=== PATIENT | female | born 1940 | race Caucasian/White ===

== ENCOUNTER 2016-11-04 16:11 | Emergency (ER) | payer MEDICARE ==
[~2016-11-04] VITALS: Ht 157.5 cm; Wt 59.9 kg
[~2016-11-04 16:11] MED LIST: DOCU100C37 PO; ENAL20TA PO; FLUT16SP22 NSEACH; HYDR12.56 PO; OXYC-465 PO; SIMV20TA3 PO
[2016-11-04] MEDS ORDERED: CARV12.53 (16:35)
[2016-11-04] MEDS ORDERED: cloNIDine 0.1 MG (CATAPRES) TAB PO ONE (16:45)
--- NOTE | 2016-11-04 17:00 | ED General ---
General Chief Complaint: Cardiac/General Problems Stated Complaint: ELEV BP Nursing Triage Note: SENT OVER FROM [facility]. STATES SHE HAD HIGH BP THIS AM AND SHE TOOK 12.5 OF COREG. IT REMAINED HIGH SO SHE TOOK ANOTHER COREG 12.5 THEN WENT TO URGENT CARE. Nursing Sepsis Screen: No Definite Risk Source of Information: Patient Exam Limitations: No Limitations History of Present Illness Time Seen by Provider: 16:55 Initial Comments The patient is a 76-year-old white female who presents to the emergency room with a complaint of high blood pressure. She reports that she takes her blood pressure daily and this morning found to be elevated. She takes carvedilol 6.25 mg daily and because of the elevated pressure she took a second pill to take her to 12.5 mg. She has since taken a second added dose of 6.25. She then went to urgent care and was found to have a blood pressure of 180/85 and was advised to present here by the mid-level provider. She sees a snack stewardess based in [place]. She was last seen in August at which time enalapril was stopped because of hyperkalemia and palpation complaints. Addition she apparently told the snack stewardess that her hydrochlorothiazide made her feel crazy and that was stopped. In its place carvedilol 6.25 mg daily was added. In the past she has also taken hydralazine and amlodipine. The amlodipine apparently caused her feet to swell. The hydralazine also did not agree with her. Timing/Duration: 12 Hours Allergies and Home Medications Allergies Coded Allergies: amlodipine (Verified Adverse Reaction, Unknown, "MADE ME WILD", 11/04/16) hydrochlorothiazide (Verified Adverse Reaction, Unknown, "MADE ME WILD", ) Home Medications Carvedilol 12.5 Mg Tablet, (Reported) Constitutional: see HPI EENTM: no symptoms reported Respiratory: no symptoms reported Cardiovascular: no symptoms reported Gastrointestinal: no symptoms reported Genitourinary: other (history of kidney dysfunction) Musculoskeletal: no symptoms reported Skin: no symptoms reported Psychiatric/Neurological: No Symptoms Reported Hematologic/Lymphatic: No Symptoms Reported Immunological/Allergic: no symptoms reported Past Qoidaxo-Femgrz-Dflsos Hx Patient Social History Alcohol Use: Denies Use Recreational Drug Use: No Recent Foreign Travel: No Contact w/Someone Who Travel: No Recent Infectious Disease Expo: No Physical Abuse: No Sexual Abuse: No Immunizations Up To Date Date of Pneumonia Vaccine: Nov 28, 2011 Date of Influenza Vaccine: Dec 12, 2014 Surgeries History of Surgeries: Yes (LEFT RCR, 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) Surgeries: Bladder Surgery, Bowel Surgery, Gallbladder, Hysterectomy Respiratory History of Respiratory Disorde: No Cardiovascular History of Cardiac Disorders: Yes Cardiac Disorders: High Cholesterol, Hypertension Neurological History of Neurological Disord: No Genitourinary History of Genitourinary Disor: No Gastrointestinal History of Gastrointestinal Di: No Musculoskeletal History of Musculoskeletal Dis: Yes Musculoskeletal Disorders: Arthritis Endocrine History of Endocrine Disorders: No HEENT History of HEENT Disorders: No Cancer History of Cancer: No Cancer: Skin, Melanoma Psychosocial History of Psychiatric Problem: No Suicide Risk Score: 0 Integumentary History of Skin or Integumenta: No Blood Transfusions History of Blood Disorders: No Family Medical History Family Medial History: Alzheimer's disease 19 MOTHER G8 SISTER Cardiovascular disease 19 MOTHER Cataracts 19 MOTHER FH: cancer 19 FATHER Physical Exam Vital Signs Vital Sign - Last 12Hours 11/04/16 16:20 Temp 98.0 Pulse 62 Resp 18 B/P (MAP) 206/93 Capillary Refill : Less Than 3 Seconds General Appearance: Anxious Eyes: Bilateral Eye Normal Inspection HEENT: Normal ENT Inspection Neck: Normal Inspection Respiratory: Chest Non Tender, Lungs Clear, Normal Breath Sounds, No Accessory Muscle Use, No Respiratory Distress Cardiovascular: Regular Rate, Rhythm, No Edema, No Gallop, No JVD, No Murmur, Normal Peripheral Pulses Gastrointestinal: Normal Bowel Sounds, No Organomegaly, No Pulsatile Mass, Non Tender, Soft Back: Normal Inspection, No CVA Tenderness, No Vertebral Tenderness Extremity: Normal Capillary Refill, Normal Inspection, Normal Range of Motion, Non Tender, No Calf Tenderness, No Pedal Edema Skin: Normal Color, Warm/Dry Lymphatic: No Adenopathy Progress/Results/Core Measures Results/Orders Lab Results Laboratory Tests Test 11/04/16 16:55 Range/Units White Blood Count 5.2 4.3-11.0 10^3/uL Red Blood Count 3.40 L 4.35-5.85 10^6/uL Hemoglobin 10.1 L 11.5-16.0 G/DL Hematocrit 30 L 35-52 % Mean Corpuscular Volume 89 80-99 FL Mean Corpuscular Hemoglobin 30 25-34 PG Mean Corpuscular Hemoglobin Concent 34 32-36 G/DL Red Cell Distribution Width 12.4 10.0-14.5 % Platelet Count 307 130-400 10^3/uL Mean Platelet Volume 8.6 7.4-10.4 FL Neutrophils (%) (Auto) 62 42-75 % Lymphocytes (%) (Auto) 29 12-44 % Monocytes (%) (Auto) 8 0-12 % Eosinophils (%) (Auto) 1 0-10 % Basophils (%) (Auto) 0 0-10 % Neutrophils # (Auto) 3.3 1.8-7.8 X 10^3 Lymphocytes # (Auto) 1.5 1.0-4.0 X 10^3 Monocytes # (Auto) 0.4 0.0-1.0 X 10^3 Eosinophils # (Auto) 0.0 0.0-0.3 10^3/uL Basophils # (Auto) 0.0 0.0-0.1 10^3/uL Sodium Level 131 L 135-145 MMOL/L Potassium Level 4.3 3.6-5.0 MMOL/L Chloride Level 97 L 98-107 MMOL/L Carbon Dioxide Level 24 21-32 MMOL/L Anion Gap 10 5-14 MMOL/L Blood Urea Nitrogen 27 H 7-18 MG/DL Creatinine 1.66 H 0.60-1.30 MG/DL Estimat Glomerular Filtration Rate 30 BUN/Creatinine Ratio 16 Glucose Level 100 70-105 MG/DL Calcium Level 9.4 8.5-10.1 MG/DL My Orders Orders - SHANNON PAINTING MD Metoprolol Tartrate (Ir) Tab (Lopressor (11/04/16 17:30) Medications Given in ED Current Medications Medications Dose Ordered Sig/Omar Route Start Time Stop Time Status Last Admin Dose Admin Clonidine HCl 0.1 mg ONCE ONCE PO 11/04/16 16:45 11/04/16 16:46 DC 11/04/16 16:51 0.1 MG Metoprolol Tartrate 25 mg ONCE ONCE PO 11/04/16 17:30 11/04/16 17:31 11/04/16 17:28 25 MG Vital Signs/I&O Vital Sign - Last 12Hours 11/04/16 16:20 Temp 98.0 Pulse 62 Resp 18 B/P (MAP) 206/93 Blood Pressure Mean: 130 Departure Communication (Admissions) Progress Notes Laboratory showed a modest elevation in creatinine at 1.66. Impression Impression: Primary Impression: hypertension Disposition: 01 HOME, SELF-CARE Condition: Stable/Unchanged Departure-Patient Inst. Decision time for Depature: 17:33 Referrals: CHASE FLOYD MD (PCP) Primary Care Physician HEENA DOMINGUEZ (Family) Primary Care Physician Add. Discharge Instructions: All discharge instructions reviewed with patient and/or family. Voiced understanding. Stop the coreg. In the a.m. begin the metoprolol XR Do not take your blood pressure at home more than once daily. See your provider in about 2 weeks and follow up Scripts Metoprolol Succinate (Metoprolol Succinate) 25 Mg Tab.er.24h 25 MG PO DAILY, #30 TAB Prov: SHANNON PAINTING MD 11/04/16 SHANNON PAINTING MD Nov 04, 2016 17:00
[2016-11-04 17:04] LABS: BASOPHILS % (AUTO) 0 % (0-10); EOSINOPHILS % (AUTO) 1 % (0-10); LYMPHOCYTES # (AUTO) 1.5 X 10^3 (1.0-4.0); LYMPHOCYTES % (AUTO) 29 % (12-44); MEAN CORPUSCULAR HEMOGLOBIN 30 PG (25-34); MEAN CORPUSCULAR HGB CONC 34 G/DL (32-36); MEAN CORPUSCULAR VOLUME 89 FL (80-99); MEAN PLATELET VOLUME 8.6 FL (7.4-10.4); MONOCYTES # (AUTO) 0.4 X 10^3 (0.0-1.0); MONOCYTES % (AUTO) 8 % (0-12); NEUTROPHILS # (AUTO) 3.3 X 10^3 (1.8-7.8); NEUTROPHILS % (AUTO) 62 % (42-75); PLATELET COUNT 307 10^3/uL (130-400); RED CELL DISTRIBUTION WIDTH 12.4 % (10.0-14.5); WHITE BLOOD COUNT 5.2 10^3/uL (4.3-11.0)
[2016-11-04 17:19] LABS: ANION GAP 10 MMOL/L (5-14); BLOOD UREA NITROGEN 27 MG/DL (7-18); BUN/CREATININE RATIO 16; CALCIUM 9.4 MG/DL (8.5-10.1); CARBON DIOXIDE 24 MMOL/L (21-32); CHLORIDE 97 MMOL/L (98-107); CREATININE SERUM 1.66 MG/DL (0.60-1.30); GFR ESTIMATED 30; GLUCOSE 100 MG/DL (70-105); POTASSIUM 4.3 MMOL/L (3.6-5.0); SODIUM 131 MMOL/L (135-145)
[2016-11-04 17:26] LABS: TROPONIN I < 0.30 NG/ML (<0.30)
[2016-11-04] MEDS ORDERED: meTOprolol TARTRATE 25 MG (LOPRESSOR) TABLET PO ONE (17:30)
[2016-11-04] MEDS ORDERED: METO-270 PO (17:36)
[2016-11-04 18:03] VITALS: BP 178/75
== END 2016-11-04 18:03 | disposition home or self-care (01) ==
LOC: EDUNIT# 16:11 → ER 16:14
DX: I10 Essential (primary) hypertension (principal); E78.00 Pure hypercholesterolemia, unspecified; M19.90 Unspecified osteoarthritis, unspecified site; Z82.49 Family history of ischemic heart disease and other diseases of the circulatory system; Z85.820 Personal history of malignant melanoma of skin; Z90.710 Acquired absence of both cervix and uterus
CPT/HCPCS: 36415; 80048; 84484; 85025

== ENCOUNTER 2018-12-26 11:09 | Outpatient (CLI) | payer MEDICARE ==
[~2018-12-26] VITALS: Ht 157 cm; Wt 62.7 kg
[~2018-12-26 11:09] MED LIST changes: +CARV12.53; +METO-387 PO
[2018-12-26] MEDS ORDERED: FERR-84 PO (12:58)
[2018-12-26] MEDS ORDERED: MELA10CA2 PO (12:58)
[2018-12-26] MEDS ORDERED: SIMV20TA3 PO (12:58)
[2018-12-26] MEDS ORDERED: OMG1KC PO (12:58)
[2018-12-26] MEDS ORDERED: ALLO100T PO (12:58)
[2018-12-26] MEDS ORDERED: FLUT9.9S NS (12:58)
[2018-12-26] MEDS ORDERED: EST30C VG (12:58)
[2018-12-26] MEDS ORDERED: TURM538C PO (12:58)
[2018-12-26] MEDS ORDERED: CYAN100071 PO (12:58)
[2018-12-26] MEDS ORDERED: METO-351 PO (12:58)
[2018-12-26] MEDS ORDERED: SENN-141 PO (12:58)
== END 2018-12-26 12:59 | disposition home or self-care (01) ==
LOC: PREOP 11:09
PROVIDERS: ATTEND Specialist
DX: Z01.818 Encounter for other preprocedural examination (principal)

== ENCOUNTER 2018-12-28 05:52 | Day surgery (SDC) | payer MEDICARE ==
[~2018-12-28] VITALS: Ht 157 cm; Wt 62.7 kg
[~2018-12-28 05:52] MED LIST changes: +ALLO100T PO; +CYAN100071 PO; +EST30C VG; +FERR-84 PO; +FLUT9.9S NS; +MELA10CA2 PO; +METO-351 PO; -METO-387 PO; +MTP25TSR PO; +OMG1KC PO; +SENN-141 PO; +SIMV20TA26 PO; -SIMV20TA3 PO; +TURM538C PO
[2018-12-28 06:00] VITALS: BP 180/83
[2018-12-28] MEDS ORDERED: LIDOCAINE PF 1% 2 ML AMP IR PRN (06:15)
[2018-12-28] MEDS ORDERED: MOXIFLOXACIN OPHTH SOLN 5 MG/ML 0.3 ML SYRINGE OP ONE (06:15)
[2018-12-28] MEDS ORDERED: TIMOLOL MALEATE 0.5% 5 ML (TIMOPTIC) BTL OU PRN (06:15)
[2018-12-28] MEDS ORDERED: POVIDONE (BETADINE) OPHTH SOLN 5% 30 ML OP ONE (06:15)
[2018-12-28] MEDS: TETRACAINE 0.5% OPHTH SOLN 4 ML BTL (SINGLE DOSE ONLY) OU PRN ×4 (06:20→06:44)
[2018-12-28] MEDS: CYCLOPENTOLATE 1% (CYCLOGYL) 2 ML DROPS OP SCH ×3 (06:30→06:45)
[2018-12-28] MEDS: PHENYLEPHRINE 10% OPHTH (NEO-SYN) 5 ML BTL OU SCH ×3 (06:30→06:44)
[2018-12-28] MEDS ORDERED: MIDAZOLAM 2 MG/2 ML (VERSED) VIAL ONE (07:14)
--- NOTE | 2018-12-28 07:22 | Ophthalmologist Pre-Op Note ---
Pre-Operative Progress Note H&P Reviewed The H&P was reviewed, patient examined and no changes noted. Date H&P Reviewed: Dec 28, 2018 Time H&P Reviewed: 07:21 Pre-Op Dx Cataract, Left Eye KARINA GARCIA MD Dec 28, 2018 07:22 POS
--- NOTE | 2018-12-28 07:44 | Ophthalmology Operative Report ---
Cataract removal/placement IOL PREOPERATIVE DIAGNOSIS: Cataract Left Eye POSTOPERATIVE DIAGNOSIS: Cataract Left Eye PROCEDURE: Cataract removal and placement of posterior chamber implant, left eye SURGEON: Wang Garcia ANESTHESIA: Topical with sedation COMPLICATIONS: None ESTIMATED BLOOD LOSS: Minimal DESCRIPTION OF PROCEDURE: After proper informed consent was obtained, the patient, a 78 female, was taken to the Operating Room and the left eye was anesthetized with tetracaine. The left eye was then prepped and draped in the usual manner. A wire lid speculum was placed. A paracentesis was made at the left hand position. Preservative free lidocaine was injected into the anterior chamber followed by viscoelastic. A clear corneal incision was made in the temporal position. A capsulorrhexis was preformed and the central nuclear and cortical material were removed. The posterior capsule was polished and an Rajan 20.0 [id number] was placed into the capsular bag. The residual viscoelastic was aspirated and balanced saline solution was injected into the anterior chamber. Moxifloxacin was injected into the anterior chamber. The wound was checked and found to be water tight. The patient tolerated the procedure well without complications. WANG GACRIA MD Dec 28, 2018 07:44 POS
[2018-12-28 07:55] VITALS: BP 150/68
[2018-12-28] MEDS ORDERED: acetaZOLAMIDE ER 500 MG CAP (DIAMOX SEQUELS) PO ONE (08:00)
--- NOTE | 2018-12-28 12:38 | Anesthesia-General Post-Op ---
MAC Patient Condition Mental Status/LOC: Same as Preop Cardiovascular: Satisfactory Nausea/Vomiting: Absent Respiratory: Satisfactory Pain: Controlled Complications: Absent Post Op Complications Complications None Follow Up Care/Instructions Patient Instructions None needed. Anesthesiology Discharge Order Discharge Order Patient is doing well, no complaints, stable vital signs, no apparent adverse anesthesia problems. No complications reported per nursing. PRISCILLA YANG CRNA Dec 28, 2018 12:38 POS
--- OUTSIDE RECORDS SUMMARY | 2019-01-20 20:02 | XMS REPORT | Continuity of Care Document ---
Demographics POS Preferred Language Unknown SP Marital Status Unknown SP Catholic Affiliation Unknown SP Race Unknown SP Ethnic Group Unknown SP Author Organization Unknown POS Address Unknown SP Phone Unavailable SP Allergies Active Description Code Type Severity POS Reaction Onset Reported/Identified POS to Patient Clinical Status POS Yes AMLODIPINE MODERATE SP SP Yes AMLODIPINE MODERATE SP SP Yes HYDROCHLOROTHIAZIDE MODERATE SP MODERATE SP Yes HYDROCHLOROTHIAZIDE MODERATE SP OTHER SP Yes HYDROXYZINE HCL M ODERATE SP MODERATE SP Yes HYDROXYZINE HCL M ODERATE SP OTHER SP Yes No Known Drug Allergies [id number] Drug SP Unknown N/A 12/19/2014 SP SP Yes amlodipine [id number] Drug Allerg y SP "MADE ME WILD" 11/04/2016 SP SP Yes hydrochlorothiazide [id number] Drug Allergy SP Unknown "MADE ME WILD" 11/04 SP SP Yes amlodipine [id number] Drug Allerg y SP "MADE ME WILD" 12/26/2018 SP SP Yes hydrochlorothiazide [id number] Drug Allergy SP Moderate "MADE ME WILD" 11/29 SP SP Medications Medication Packaging Start Date St op Date POS Route Dosage Sig POS NORMAL SALINE 1000CC IV BAG INJ 0.9 % (NS 1000CC IV BAG) SP ml 02/07/2018 02/22/2018 SP CONTINUOUSEVERY 0 Hour SP MEPERIDINE SYRINGE INJ 25 MG /CC (DEMEROL SYRINGE) SP MG 02/07/2018 02/07/2018 SP PRN ONCE SP ONDANSETRON VIAL INJ 4 MG/2CC (ZOFRAN 2CC VIAL) SP 02/07/2018 02/07/2018 SP PRN ONCE Problems Date Dx Coded Attending Type Code POS Diagnosed By POS 12/25/2014 DELIA SALINAS, KAMLA Bazan Ot B97.89 SP OTH VIRAL AGENTS THE CAUSE OF DISEASE SP 12/25/2014 KAMLA LIN MD Ot D64.9 SP ANEMIA, UNSPECIFIED SP 12/25/2014 KAMLA LIN MD Ot N32.81 SP OVERACTIVE BLADDER SP 12/25/2014 DELIA SALINAS, KAMLA Hortensia Ot N35.9 SP URETHRAL STRICTURE, UNSPECIFIED SP 12/25/2014 DELIA SALINAS, KAMLA Bazan Ot N39.3 SP STRESS INCONTINENCE (FEMALE) (MALE) SP 12/25/2014 DELIA SALINAS, KAMLA Bazan Ot N81.4 SP UTEROVAGINAL PROLAPSE, UNSPECIFIED SP 12/25/2014 DELIA SALINAS, KAMLA Bazan Ot R33.9 SP RETENTION OF URINE, UNSPECIFIED SP 12/25/2014 DELIA SALINAS, KAMLA Bazan Ot R50.82 SP POSTPROCEDURAL FEVER SP 12/26/2014 DELIA SALINAS, KAMLA Bazan Ot D64.9 SP SP 12/26/2014 DELIA SALINAS, KAMLA Bazan Ot N81.6 SP SP 12/26/2014 DELIA SALINAS, KAMLA Bazan Ot R32 SP SP 12/26/2014 DELIA SALINAS, KAMLA G Ot Z01.810 SP SP 12/26/2014 DELIA SALINAS, KAMLA Bazan Ot Z01.812 SP SP 12/26/2014 DELIA SALINAS, KAMLA Bazan Ot Z11.2 SP SP 01/06/2015 DELIA SALINAS, KAMLA Bazan Ot D64.9 SP SP 01/06/2015 DELIA SALINAS, KAMLA Bazan Ot N81.6 SP SP 01/06/2015 DELIA SALINAS, KAMLA Bazan Ot R32 SP SP 01/06/2015 DELIA SALINAS, KAMLA Bazan Ot Z01.810 SP SP 01/06/2015 DELIA SALINAS, KAMLA Bazan Ot Z01.812 SP SP 01/06/2015 DELIA SALINAS, KAMLA Bazan Ot Z11.2 SP SP 11/04/2016 Ot E78.00 PUR E SP UNSPECIFIED SP 11/04/2016 Ot I10 ESSENT IAL (PRIMARY) SP SP 11/04/2016 Ot M19.90 UNS PECIFIED SP UNSPECIFIED SP 11/04/2016 Ot R03.0 ELEV ATED BLOOD- SP READING, W/O CARLOS SP 11/04/2016 Ot Z82.49 FAM LIBBY HX OF SP HEART DIS AND OTH DI SP 11/04/2016 Ot 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 11/04/2016 Ot Z90.710 AC QUIRED ABSENCE SPOF BOTH CERVIX AND UTER SP 11/07/2016 Ot E78.00 PUR E SP UNSPECIFIED SP 11/07/2016 Ot I10 ESSENT IAL (PRIMARY) SP SP 11/07/2016 Ot M19.90 UNS PECIFIED SP UNSPECIFIED SP 11/07/2016 Ot R03.0 ELEV ATED BLOOD- SP READING, W/O CARLOS SP 11/07/2016 Ot Z82.49 FAM LIBBY HX OF SP HEART DIS AND OTH DI SP 11/07/2016 Ot 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 11/07/2016 Ot Z90.710 AC QUIRED ABSENCE SPOF BOTH CERVIX AND UTER SP 11/18/2016 W 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 11/18/2016 W 285 OTHER AND UNSPECIFIED SPANEMIAS SP 11/18/2016 W 403.90 HYP ERTENSIVE SP KIDNEY DISEASE, UNSPECIFIED, WITH CHRONIC KIDNEY DISEASE STAGE I THROUGH STAGE IV, OR UNSPECIFIED SP 11/18/2016 W 477.8 ABEL RGIC RHINITIS SP TO OTHER ALLERGEN SP 11/18/2016 W 780.79 OTH ER MALAISE AND SP SP 11/18/2016 W D64.9 ANEM IA, UNSPECIFIED SP SP 11/18/2016 W E78.5 HYPE RLIPIDEMIA, SP SP 11/18/2016 W I12.9 HYPE RTENSIVE SP KIDNEY DISEASE WITH STAGE 1 THROUGH STAGE 4 CHRONIC KIDNEY DISEASE, OR UNSPECIFIED CHRONIC KIDNEY DISEASE SP 11/18/2016 W J30.2 OTHE R SEASONAL SP RHINITIS SP 11/18/2016 W R54 AGE-RE LATED PHYSICAL SP SP 11/22/2016 Aleyda Houser W 401.9 SP ESSENTIAL HYPERTENSION SP 11/22/2016 Aleyda Houser W 585.3 CHRONIC SP DISEASE, STAGE III (MODERATE) SP 11/22/2016 Aleyda Houser W I10 ESSENTIAL SP HYPERTENSION SP 11/22/2016 Aleyda Houser W I13.0 SP HEART AND CHRONIC KIDNEY DISEASE WITH HEART FAILURE AND STAGE 1 THROUGH STAGE 4 CHRONIC KIDNEY DISEASE, OR UNSPECIFIED CHRONIC KIDNEY DISEASE SP 11/22/2016 Corrina, Aleyda W 272.8 OTHER SP OF LIPOID METABOLISM SP 11/22/2016 Corrina, Aleyda W 282.3 OTHER SP ANEMIAS DUE TO ENZYME DEFICIENCY SP 11/22/2016 Corrina, Aleyda W 401.9 SP ESSENTIAL HYPERTENSION SP 11/22/2016 Corrina, Aleyda W 585.3 CHRONIC SP DISEASE, STAGE III (MODERATE) SP 11/22/2016 Corrina, Aleyda W D55.2 ANEMIA SP TO DISORDERS OF GLYCOLYTIC ENZYMES SP 11/22/2016 Corrina, Aleyda W E78.5 SP UNSPECIFIED SP 11/22/2016 Corrina, Aleyda W I10 ESSENTIAL SP HYPERTENSION SP 11/22/2016 CorrinaAleyda W I13.0 SP HEART AND CHRONIC KIDNEY DISEASE WITH HEART FAILURE AND STAGE 1 THROUGH STAGE 4 CHRONIC KIDNEY DISEASE, OR UNSPECIFIED CHRONIC KIDNEY DISEASE SP 11/22/2016 Corrina, Aleyda W 272.8 OTHER SP OF LIPOID METABOLISM SP 11/22/2016 Corrina, Aleyda W 282.3 OTHER SP ANEMIAS DUE TO ENZYME DEFICIENCY SP 11/22/2016 Corrina, Aleyda W 401.9 SP ESSENTIAL HYPERTENSION SP 11/22/2016 CorrinaAleyda W 585.3 CHRONIC SP DISEASE, STAGE III (MODERATE) SP 11/22/2016 CorrinaAleyda W D55.2 ANEMIA SP TO DISORDERS OF GLYCOLYTIC ENZYMES SP 11/22/2016 CorrinaAleyda W E78.5 SP UNSPECIFIED SP 11/22/2016 Corrina, Aleyda W I10 ESSENTIAL SP HYPERTENSION SP 11/22/2016 CorrinaAleyda W I13.0 SP HEART AND CHRONIC KIDNEY DISEASE WITH HEART FAILURE AND STAGE 1 THROUGH STAGE 4 CHRONIC KIDNEY DISEASE, OR UNSPECIFIED CHRONIC KIDNEY DISEASE SP 11/22/2016 W 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 11/22/2016 W 282.3 OTHE R HEMOLYTIC SP DUE TO ENZYME DEFICIENCY SP 11/22/2016 W 401.9 UNSP ECIFIED SP HYPERTENSION SP 11/22/2016 W 585.3 DIGITAL COMMENTATOR KEVIN KIDNEY SP STAGE III (MODERATE) SP 11/22/2016 W D55.2 ANEM IA DUE TO SP OF GLYCOLYTIC ENZYMES SP 11/22/2016 W E78.5 HYPE RLIPIDEMIA, SP SP 11/22/2016 W I10 ESSENT IAL (PRIMARY) SP SP 11/22/2016 W I13.0 HYPE RTENSIVE HEART SP CHRONIC KIDNEY DISEASE WITH HEART FAILURE AND STAGE 1 THROUGH STAGE 4 CHRONIC KIDNEY DISEASE, OR UNSPECIFIED CHRONIC KIDNEY DISEASE SP 11/22/2016 Aleyda Houser W 272.8 OTHER SP OF LIPOID METABOLISM SP 11/22/2016 Aleyda Houser W 282.3 OTHER SP ANEMIAS DUE TO ENZYME DEFICIENCY SP 11/22/2016 Aleyda Houser W 401.9 SP ESSENTIAL HYPERTENSION SP 11/22/2016 Aleyda Houser W 585.3 CHRONIC SP DISEASE, STAGE III (MODERATE) SP 11/22/2016 Aleyda Houser W D55.2 ANEMIA SP TO DISORDERS OF GLYCOLYTIC ENZYMES SP 11/22/2016 Aleyda Houser W E78.5 SP UNSPECIFIED SP 11/22/2016 Aleyda Houser W I10 ESSENTIAL SP HYPERTENSION SP 11/22/2016 Aleyda Houser W I13.0 SP HEART AND CHRONIC KIDNEY DISEASE WITH HEART FAILURE AND STAGE 1 THROUGH STAGE 4 CHRONIC KIDNEY DISEASE, OR UNSPECIFIED CHRONIC KIDNEY DISEASE SP 12/16/2016 W 401.9 UNSP ECIFIED SP HYPERTENSION SP 12/16/2016 W 403.00 HYP ERTENSIVE SP KIDNEY DISEASE, MALIGNANT, WITH CHRONIC KIDNEY DISEASE STAGE I THROUGH STAGE IV, OR UNSPECIFIED SP 12/16/2016 W 477.0 ABEL RGIC RHINITIS SP TO POLLEN SP 12/16/2016 W 719.46 KATHY N IN JOINT SP LOWER LEG SP 12/16/2016 W I10 ESSENT IAL (PRIMARY) SP SP 12/16/2016 W I12.9 HYPE RTENSIVE SP KIDNEY DISEASE WITH STAGE 1 THROUGH STAGE 4 CHRONIC KIDNEY DISEASE, OR UNSPECIFIED CHRONIC KIDNEY DISEASE SP 12/16/2016 W J30.1 ABEL RGIC RHINITIS SP TO POLLEN SP 12/16/2016 W M25.561 PA IN IN RIGHT SP SP 01/12/2017 JOSE RAFAEL DIAZ W 268.9 SP VITAMIN D DEFICIENCY SP 01/12/2017 JOSE RAFAEL DIAZ W 401.0 SP ESSENTIAL HYPERTENSION SP 01/12/2017 JOSE RAFAEL DIAZ W 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 01/12/2017 JOSE RAFAEL DIAZ W E55.9 SP D DEFICIENCY, UNSPECIFIED SP 01/12/2017 JOSE RAFAEL DIAZ W I10 SP (PRIMARY) HYPERTENSION SP 01/12/2017 JOSE RAFAEL DIAZ W 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 01/12/2017 W 268.9 UNSP ECIFIED VITAMIN SPD DEFICIENCY SP 01/12/2017 W 272.4 OTHE R AND SP HYPERLIPIDEMIA SP 01/12/2017 W 282.3 OTHE R HEMOLYTIC SP DUE TO ENZYME DEFICIENCY SP 01/12/2017 W 401.0 NONI GNANT ESSENTIAL SPHYPERTENSION SP 01/12/2017 W 403.00 HYP ERTENSIVE SP KIDNEY DISEASE, MALIGNANT, WITH CHRONIC KIDNEY DISEASE STAGE I THROUGH STAGE IV, OR UNSPECIFIED SP 01/12/2017 W 477.0 ABEL RGIC RHINITIS SP TO POLLEN SP 01/12/2017 W 588.81 SEC ONDARY SP (OF RENAL ORIGIN) SP 01/12/2017 W D55.2 ANEM IA DUE TO SP OF GLYCOLYTIC ENZYMES SP 01/12/2017 W E55.9 CHRISTINA MIN D SP UNSPECIFIED SP 01/12/2017 W E78.5 HYPE RLIPIDEMIA, SP SP 01/12/2017 W I10 ESSENT IAL (PRIMARY) SP SP 01/12/2017 W I12.9 HYPE RTENSIVE SP KIDNEY DISEASE WITH STAGE 1 THROUGH STAGE 4 CHRONIC KIDNEY DISEASE, OR UNSPECIFIED CHRONIC KIDNEY DISEASE SP 01/12/2017 W J30.1 ABEL RGIC RHINITIS SP TO POLLEN SP 01/12/2017 W 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 03/27/2017 Kandi Malik W 487.1 SP WITH OTHER RESPIRATORY MANIFESTATIONS SP 03/27/2017 Kandi Malik W J11.1 SP DUE TO UNIDENTIFIED INFLUENZA VIRUS WITH OTHER RESPIRATORY MANIFESTATIONS SP 03/27/2017 W 487.1 INFL UENZA WITH SP RESPIRATORY MANIFESTATIONS SP 03/27/2017 W J11.1 INFL UENZA DUE TO SP INFLUENZA VIRUS WITH OTHER RESPIRATORY MANIFESTATIONS SP 03/29/2017 W 488.12 INF LUENZA DUE TO SP 2009 H1N1 INFLUENZA VIRUS WITH OTHER RESPIRATORY MANIFESTATIONS SP 03/29/2017 W 786.05 DONNIE RTNESS OF SP SP 03/29/2017 W 786.2 COUGH SP 03/29/2017 W J10.1 INFL UENZA DUE TO SP IDENTIFIED INFLUENZA VIRUS WITH OTHER RESPIRATORY MANIFESTATIONS SP 03/29/2017 W R05 COUGH SP 03/29/2017 W R06.02 DONNIE RTNESS OF SP SP 03/31/2017 W 488.12 INF LUENZA DUE TO SP 2009 H1N1 INFLUENZA VIRUS WITH OTHER RESPIRATORY MANIFESTATIONS SP 03/31/2017 W 786.05 DONNIE RTNESS OF SP SP 03/31/2017 W 786.2 COUGH SP 03/31/2017 W J10.1 INFL UENZA DUE TO SP IDENTIFIED INFLUENZA VIRUS WITH OTHER RESPIRATORY MANIFESTATIONS SP 03/31/2017 W R05 COUGH SP 03/31/2017 W R06.02 DONNIE RTNESS OF SP SP 04/13/2017 W 268 VITAMI N D DEFICIENCY SP SP 04/13/2017 W 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 04/13/2017 W 285.9 ANEM IA, UNSPECIFIED SP SP 04/13/2017 W 401.9 UNSP ECIFIED SP HYPERTENSION SP 04/13/2017 W 585.3 DIGITAL COMMENTATOR KEVIN KIDNEY SP STAGE III (MODERATE) SP 04/13/2017 W D64.9 ANEM IA, UNSPECIFIED SP SP 04/13/2017 W E55.9 CHRISTINA MIN D SP UNSPECIFIED SP 04/13/2017 W E78.5 HYPE RLIPIDEMIA, SP SP 04/13/2017 W I10 ESSENT IAL (PRIMARY) SP SP 04/13/2017 W I12.9 HYPE RTENSIVE SP KIDNEY DISEASE WITH STAGE 1 THROUGH STAGE 4 CHRONIC KIDNEY DISEASE, OR UNSPECIFIED CHRONIC KIDNEY DISEASE SP 04/21/2017 Aleyda Houser W 274.10 GOUTY SP UNSPECIFIED SP 04/21/2017 Aleyda Houser W 403.00 SP CHRONIC KIDNEY DISEASE, MALIGNANT, WITH CHRONIC KIDNEY DISEASE STAGE I THROUGH STAGE IV, OR UNSPECIFIED SP 04/21/2017 Aleyda Houser W 719.47 PAIN IN SPJOINT INVOLVING ANKLE AND FOOT SP 04/21/2017 Aleyda Houser W I12.9 SP CHRONIC KIDNEY DISEASE WITH STAGE 1 THROUGH STAGE 4 CHRONIC KIDNEY DISEASE, OR UNSPECIFIED CHRONIC KIDNEY DISEASE SP 04/21/2017 Aleyda Houser W M10.371 GOUT SP TO RENAL IMPAIRMENT, RIGHT ANKLE AND FOOT SP 04/21/2017 Aleyda Houser W M25.571 PAIN SP RIGHT ANKLE AND JOINTS OF RIGHT FOOT SP 04/21/2017 W 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, SPUNSPECIFIED SP 04/21/2017 W 403.00 HYP ERTENSIVE SP KIDNEY DISEASE, MALIGNANT, WITH CHRONIC KIDNEY DISEASE STAGE I THROUGH STAGE IV, OR UNSPECIFIED SP 04/21/2017 W 719.47 KATHY N IN JOINT SP ANKLE AND FOOT SP 04/21/2017 W I12.9 HYPE RTENSIVE SP KIDNEY DISEASE WITH STAGE 1 THROUGH STAGE 4 CHRONIC KIDNEY DISEASE, OR UNSPECIFIED CHRONIC KIDNEY DISEASE SP 04/21/2017 W M10.371 GO [place] DUE TO RENAL SPIMPAIRMENT, RIGHT ANKLE AND FOOT SP 04/21/2017 W M25.571 PA IN IN RIGHT SP AND JOINTS OF RIGHT FOOT SP 05/09/2017 W 401.9 UNSP ECIFIED SP HYPERTENSION SP 05/09/2017 W 404.01 HYP ERTENSIVE HEART SPAND CHRONIC KIDNEY DISEASE, MALIGNANT, WITH HEART FAILURE AND WITH CHRONIC KIDNEY DISEASE STAGE I THROUGH STAGE IV, OR UNSPECIFIED SP 05/09/2017 W 585.3 DIGITAL COMMENTATOR KEVIN KIDNEY SP STAGE III (MODERATE) SP 05/09/2017 W 847.0 NECK SPRAIN SP SP 05/09/2017 W I10 ESSENT IAL (PRIMARY) SP SP 05/09/2017 W I13.0 HYPE RTENSIVE HEART SP CHRONIC KIDNEY DISEASE WITH HEART FAILURE AND STAGE 1 THROUGH STAGE 4 CHRONIC KIDNEY DISEASE, OR UNSPECIFIED CHRONIC KIDNEY DISEASE SP 05/09/2017 W N18.3 DIGITAL COMMENTATOR KEVIN KIDNEY SP STAGE 3 (MODERATE) SP 05/09/2017 W S16.1 STRA IN OF MUSCLE, SP AND TENDON AT NECK LEVEL SP 07/12/2017 W 268 VITAMI N D DEFICIENCY SP SP 07/12/2017 W 401.9 UNSP ECIFIED SP HYPERTENSION SP 07/12/2017 W 477.8 ABEL RGIC RHINITIS SP TO OTHER ALLERGEN SP 07/12/2017 W 530.81 ESO PHAGEAL REFLUX SP SP 07/12/2017 W 585.4 DIGITAL COMMENTATOR KEVIN KIDNEY SP STAGE IV (SEVERE) SP 07/12/2017 W E55.9 CHRISTINA MIN D SP UNSPECIFIED SP 07/12/2017 W I10 ESSENT IAL (PRIMARY) SP SP 07/12/2017 W I12.9 HYPE RTENSIVE SP KIDNEY DISEASE WITH STAGE 1 THROUGH STAGE 4 CHRONIC KIDNEY DISEASE, OR UNSPECIFIED CHRONIC KIDNEY DISEASE SP 07/12/2017 W J30.2 OTHE R SEASONAL SP RHINITIS SP 07/12/2017 W 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 07/12/2017 W V12.29 PER HAYES HISTORY SP OTHER ENDOCRINE, METABOLIC, AND IMMUNITY DISORDERS SP 07/12/2017 W Z87.39 PER HAYES HISTORY SP OTHER DISEASES OF THE MUSCULOSKELETAL SYSTEM AND CONNECTIVE TISSUE SP 07/14/2017 Corrina, Aleyda W 401.9 SP ESSENTIAL HYPERTENSION SP 07/14/2017 Corrina, Aleyda W I10 ESSENTIAL SP HYPERTENSION SP 07/14/2017 Corrina, Aleyda W 268 SP SP 07/14/2017 Corrina, Aleyda W 401.9 SP ESSENTIAL HYPERTENSION SP 07/14/2017 Corrina, Aleyda W 477.8 ALLERGIC SPRHINITIS DUE TO OTHER ALLERGEN SP 07/14/2017 Corrina, Aleyda W 530.81 SP REFLUX SP 07/14/2017 Corrina, Aleyda W 585.4 CHRONIC SP DISEASE, STAGE IV (SEVERE) SP 07/14/2017 Corrina, Aleyda W E55.9 VITAMIN SP DEFICIENCY, UNSPECIFIED SP 07/14/2017 Corrina, Aleyda W I10 ESSENTIAL SP HYPERTENSION SP 07/14/2017 Corrina, Aleyda W I12.9 SP CHRONIC KIDNEY DISEASE WITH STAGE 1 THROUGH STAGE 4 CHRONIC KIDNEY DISEASE, OR UNSPECIFIED CHRONIC KIDNEY DISEASE SP 07/14/2017 Corrina, Aleyda W J30.2 OTHER SP ALLERGIC RHINITIS SP 07/14/2017 Corrina, Aleyda W K21.9 GASTRO- SP REFLUX DISEASE WITHOUT ESOPHAGITIS SP 07/14/2017 Corrina, Aleyda W V12.29 SP SP 07/14/2017 Corrina, Aleyda W Z87.39 SP HISTORY OF OTHER DISEASES OF THE MUSCULOSKELETAL SYSTEM AND CONNECTIVE TISSUE SP 07/14/2017 Corrina, Aleyda W 268 SP SP 07/14/2017 Corrina, Aleyda W 401.9 SP ESSENTIAL HYPERTENSION SP 07/14/2017 Corrina, Aleyda W 477.8 SP SP 07/14/2017 Corrina, Aleyda W 530.81 SP REFLUX SP 07/14/2017 Corrina, Aleyda W 585.4 CHRONIC SP DISEASE, STAGE IV (SEVERE) SP 07/14/2017 Corrina, Aleyda W E55.9 VITAMIN SP DEFICIENCY, UNSPECIFIED SP 07/14/2017 Corrina, Aleyda W I10 ESSENTIAL SP HYPERTENSION SP 07/14/2017 Corrina, Aleyda W I12.9 SP CHRONIC KIDNEY DISEASE WITH STAGE 1 THROUGH STAGE 4 CHRONIC KIDNEY DISEASE, OR UNSPECIFIED CHRONIC KIDNEY DISEASE SP 07/14/2017 Corrina, Aleyda W J30.2 OTHER SP ALLERGIC RHINITIS SP 07/14/2017 Corrina, Aleyda W K21.9 GASTRO- SP REFLUX DISEASE WITHOUT ESOPHAGITIS SP 07/14/2017 Corrina, Aleyda W V12.29 SP SP 07/14/2017 Corrina, Aleyda W Z87.39 SP HISTORY OF OTHER DISEASES OF THE MUSCULOSKELETAL SYSTEM AND CONNECTIVE TISSUE SP 09/05/2017 [facility] W 276.2 SP SP 09/05/2017 [facility] W 401.0 SP ESSENTIAL HYPERTENSION SP 09/05/2017 [facility] W 585.4 SP KIDNEY DISEASE, STAGE IV (SEVERE) SP 09/05/2017 [facility] W 790.6 OTHER SP BLOOD CHEMISTRY SP 09/05/2017 [facility] W E79.0 SP WITHOUT SIGNS OF INFLAMMATORY ARTHRITIS AND TOPHACEOUS DISEASE SP 09/05/2017 [facility] W E87.2 SP SP 09/05/2017 [facility] W I10 SP (PRIMARY) HYPERTENSION SP 09/05/2017 [facility] W N18.4 SP KIDNEY DISEASE, STAGE 4 (SEVERE) SP 09/05/2017 W 276.2 ACIDOSIS SP 09/05/2017 W 401.0 NONI GNANT ESSENTIAL SPHYPERTENSION SP 09/05/2017 W 585.4 DIGITAL COMMENTATOR KEVIN KIDNEY SP STAGE IV (SEVERE) SP 09/05/2017 W 790.6 OTHE R ABNORMAL SP CHEMISTRY SP 09/05/2017 W E79.0 HYPE RURICEMIA SP SIGNS OF INFLAMMATORY ARTHRITIS AND TOPHACEOUS DISEASE SP 09/05/2017 W E87.2 ACIDOSIS SP 09/05/2017 W I10 ESSENT IAL (PRIMARY) SP SP 09/05/2017 W N18.4 DIGITAL COMMENTATOR KEVIN KIDNEY SP STAGE 4 (SEVERE) SP 10/11/2017 W 268 VITAMI N D DEFICIENCY SP SP 10/11/2017 W 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 10/11/2017 W 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, SPUNSPECIFIED SP 10/11/2017 W 285.9 ANEM IA, UNSPECIFIED SP SP 10/11/2017 W 401.9 UNSP ECIFIED SP HYPERTENSION SP 10/11/2017 W 477.8 ABEL RGIC RHINITIS SP TO OTHER ALLERGEN SP 10/11/2017 W 530.81 ESO PHAGEAL REFLUX SP SP 10/11/2017 W 585.4 DIGITAL COMMENTATOR KEVIN KIDNEY SP STAGE IV (SEVERE) SP 10/11/2017 W D64.9 ANEM IA, UNSPECIFIED SP SP 10/11/2017 W E55.9 CHRISTINA MIN D SP UNSPECIFIED SP 10/11/2017 W E78.5 HYPE RLIPIDEMIA, SP SP 10/11/2017 W I10 ESSENT IAL (PRIMARY) SP SP 10/11/2017 W I12.9 HYPE RTENSIVE SP KIDNEY DISEASE WITH STAGE 1 THROUGH STAGE 4 CHRONIC KIDNEY DISEASE, OR UNSPECIFIED CHRONIC KIDNEY DISEASE SP 10/11/2017 W J30.2 OTHE R SEASONAL SP RHINITIS SP 10/11/2017 W 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 10/11/2017 W M10.371 GO [place] DUE TO RENAL SPIMPAIRMENT, RIGHT ANKLE AND FOOT SP 10/13/2017 Corrina, Aleyda W 268 VITAMIN D SP SP 10/13/2017 Corrina, Aleyda W 272.8 SP SP 10/13/2017 Corrina, Aleyda W 274.10 SP SP 10/13/2017 Corrina, Aleyda W 285.9 SP SP 10/13/2017 Corrina, Aleyda W 401.9 SP ESSENTIAL HYPERTENSION SP 10/13/2017 Corrina, Aleyda W 477.8 ALLERGIC SPRHINITIS DUE TO OTHER ALLERGEN SP 10/13/2017 Corrina, Aleyda W 530.81 SP REFLUX SP 10/13/2017 Corrina, Aleyda W 585.4 CHRONIC SP DISEASE, STAGE IV (SEVERE) SP 10/13/2017 Corrina, Aleyda W D64.9 ANEMIA, SP SP 10/13/2017 Corrina, Aleyda W E55.9 VITAMIN SP DEFICIENCY, UNSPECIFIED SP 10/13/2017 Corrina, Aleyda W E78.5 SP UNSPECIFIED SP 10/13/2017 Corrina, Aleyda W I10 ESSENTIAL SP HYPERTENSION SP 10/13/2017 Corrina, Aleyda W I12.9 SP CHRONIC KIDNEY DISEASE WITH STAGE 1 THROUGH STAGE 4 CHRONIC KIDNEY DISEASE, OR UNSPECIFIED CHRONIC KIDNEY DISEASE SP 10/13/2017 Corrina, Aleyda W J30.2 OTHER SP ALLERGIC RHINITIS SP 10/13/2017 Corrina, Aleyda W K21.9 GASTRO- SP REFLUX DISEASE WITHOUT ESOPHAGITIS SP 10/13/2017 Corrina, Aleyda W M10.371 GOUT SP TO RENAL IMPAIRMENT, RIGHT ANKLE AND FOOT SP 01/12/2018 Corrina, Aleyda W 401.0 SP ESSENTIAL HYPERTENSION SP 01/12/2018 Corrina, Aleyda W 681.10 SP AND ABSCESS OF TOE, UNSPECIFIED SP 01/12/2018 Corrina, Aleyda W I10 ESSENTIAL SP HYPERTENSION SP 01/12/2018 Corrina, Aleyda W L03.032 SP OF LEFT TOE SP 01/12/2018 Corrina, Aleyda W 268 VITAMIN D SP SP 01/12/2018 Corrina, Aleyda W 272.8 OTHER SP OF LIPOID METABOLISM SP 01/12/2018 Corrina, Aleyda W 274.10 SP SP 01/12/2018 Corrina, Aleyda W 401.0 SP ESSENTIAL HYPERTENSION SP 01/12/2018 Corrina, Aleyda W 403.00 SP CHRONIC KIDNEY DISEASE, MALIGNANT, WITH CHRONIC KIDNEY DISEASE STAGE I THROUGH STAGE IV, OR UNSPECIFIED SP 01/12/2018 Corrina, Aleyda W 477.0 SP SP 01/12/2018 Corrina, Aleyda W 681.10 SP AND ABSCESS OF TOE, UNSPECIFIED SP 01/12/2018 Corrina, Aleyda W E55.9 VITAMIN SP DEFICIENCY, UNSPECIFIED SP 01/12/2018 Corrina, Aleyda W E78.5 SP UNSPECIFIED SP 01/12/2018 Corrina, Aleyda W I10 ESSENTIAL SP HYPERTENSION SP 01/12/2018 Corrina, Aleyda W I12.9 SP CHRONIC KIDNEY DISEASE WITH STAGE 1 THROUGH STAGE 4 CHRONIC KIDNEY DISEASE, OR UNSPECIFIED CHRONIC KIDNEY DISEASE SP 01/12/2018 Corrina, Aleyda W 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 01/12/2018 Corrina, Aleyda W L03.032 SP OF LEFT TOE SP 01/12/2018 Corrina, Aleyda W M10.371 GOUT SP TO RENAL IMPAIRMENT, RIGHT ANKLE AND FOOT SP 01/12/2018 Corrina, Aleyda W 268 SP SP 01/12/2018 Corrina, Aleyda W 272.8 SP SP 01/12/2018 Corrina, Aleyda W 274.10 SP SP 01/12/2018 Corrina, Aleyda W 401.0 SP ESSENTIAL HYPERTENSION SP 01/12/2018 Corrina, Aleyda W 403.00 SP CHRONIC KIDNEY DISEASE, MALIGNANT, WITH CHRONIC KIDNEY DISEASE STAGE I THROUGH STAGE IV, OR UNSPECIFIED SP 01/12/2018 Corrina, Aleyda W 477.0 SP SP 01/12/2018 Corrina, Aleyda W 681.10 SP AND ABSCESS OF TOE, UNSPECIFIED SP 01/12/2018 Corrina, Aleyda W E55.9 VITAMIN SP DEFICIENCY, UNSPECIFIED SP 01/12/2018 Aleyda Houser W E78.5 SP UNSPECIFIED SP 01/12/2018 Aleyda Houser W I10 ESSENTIAL SP HYPERTENSION SP 01/12/2018 Aleyda Houser W I12.9 SP CHRONIC KIDNEY DISEASE WITH STAGE 1 THROUGH STAGE 4 CHRONIC KIDNEY DISEASE, OR UNSPECIFIED CHRONIC KIDNEY DISEASE SP 01/12/2018 Aleyda Houser W 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 01/12/2018 Aleyda Houser W L03.032 SP OF LEFT TOE SP 01/12/2018 Corrina, Aleyda W M10.371 GOUT SP TO RENAL IMPAIRMENT, RIGHT ANKLE AND FOOT SP 01/12/2018 W 268 VITAMI N D DEFICIENCY SP SP 01/12/2018 W 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 01/12/2018 W 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, SPUNSPECIFIED SP 01/12/2018 W 285.9 ANEM IA, UNSPECIFIED SP SP 01/12/2018 W 401.0 NONI GNANT ESSENTIAL SPHYPERTENSION SP 01/12/2018 W 403.00 HYP ERTENSIVE SP KIDNEY DISEASE, MALIGNANT, WITH CHRONIC KIDNEY DISEASE STAGE I THROUGH STAGE IV, OR UNSPECIFIED SP 01/12/2018 W 477.0 ABEL RGIC RHINITIS SP TO POLLEN SP 01/12/2018 W 681.10 JULIO LULITIS AND SP OF TOE, UNSPECIFIED SP 01/12/2018 W D64.9 ANEM IA, UNSPECIFIED SP SP 01/12/2018 W E55.9 CHRISTINA MIN D SP UNSPECIFIED SP 01/12/2018 W E78.5 HYPE RLIPIDEMIA, SP SP 01/12/2018 W I10 ESSENT IAL (PRIMARY) SP SP 01/12/2018 W I12.9 HYPE RTENSIVE SP KIDNEY DISEASE WITH STAGE 1 THROUGH STAGE 4 CHRONIC KIDNEY DISEASE, OR UNSPECIFIED CHRONIC KIDNEY DISEASE SP 01/12/2018 W J30.1 ABEL RGIC RHINITIS SP TO POLLEN SP 01/12/2018 W L03.032 CE LLULITIS OF SP TOE SP 01/12/2018 W M10.371 GO UT DUE TO RENAL SPIMPAIRMENT, RIGHT ANKLE AND FOOT SP 01/26/2018 W 585.4 DIGITAL COMMENTATOR KEVIN KIDNEY SP STAGE IV (SEVERE) SP 01/26/2018 W 681.00 JULIO LULITIS AND SP OF FINGER, UNSPECIFIED SP 01/26/2018 W 709.9 UNSP ECIFIED SP OF SKIN AND SUBCUTANEOUS TISSUE SP 01/26/2018 W 729.5 PAIN IN LIMB SP SP 01/26/2018 W 782.3 EDEMA SP 01/26/2018 W 989.5 TOXI C EFFECT OF SP SP 01/26/2018 W I12.9 HYPE RTENSIVE SP KIDNEY DISEASE WITH STAGE 1 THROUGH STAGE 4 CHRONIC KIDNEY DISEASE, OR UNSPECIFIED CHRONIC KIDNEY DISEASE SP 01/26/2018 W L03.012 CE LLULITIS OF SP FINGER SP 01/26/2018 W L98.9 DISO RDER OF THE SP AND SUBCUTANEOUS TISSUE, UNSPECIFIED SP 01/26/2018 W M79.642 PA IN IN LEFT HAND SP SP 01/26/2018 W R60.0 LOCA LIZED EDEMA SP SP 01/26/2018 W T14.8 OTHE R INJURY OF SP BODY REGION SP 02/02/2018 W 727.41 EMI GLION OF JOINT SP SP 02/02/2018 W M67.472 GA NGLION, LEFT SP AND FOOT SP 02/02/2018 W V72.83 OTH ER SPECIFIED SP EXAMINATION SP 02/02/2018 W Z01.818 EN COUNTER FOR SP PREPROCEDURAL EXAMINATION SP 02/07/2018 Alf Ford W 211.3 SP BENIGN NEOPLASM OF COLON SP 02/07/2018 Alf Ford W 455.6 SP UNSPECIFIED HEMORRHOIDS WITHOUT MENTION OF COMPLICATIO N SP 02/07/2018 Alf Ford W 787.7 SP ABNORMAL FECES SP 02/07/2018 Alf Ford W 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 02/07/2018 Alf Ford W 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 02/07/2018 Alf Ford W K64.8 SP OTHER HEMORRHOIDS SP 02/07/2018 Alf Ford W R19.5 SP OTHER FECAL ABNORMALITIES SP 05/02/2018 W 268 VITAMI N D DEFICIENCY SP SP 05/02/2018 W 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 05/02/2018 W 285.9 ANEM IA, UNSPECIFIED SP SP 05/02/2018 W 401.0 NONI GNANT ESSENTIAL SPHYPERTENSION SP 05/02/2018 W 477.8 ABEL RGIC RHINITIS SP TO OTHER ALLERGEN SP 05/02/2018 W 530.81 ESO PHAGEAL REFLUX SP SP 05/02/2018 W 585.4 DIGITAL COMMENTATOR KEVIN KIDNEY SP STAGE IV (SEVERE) SP 05/02/2018 W D64.9 ANEM IA, UNSPECIFIED SP SP 05/02/2018 W E55.9 CHRISTINA MIN D SP UNSPECIFIED SP 05/02/2018 W E78.5 HYPE RLIPIDEMIA, SP SP 05/02/2018 W I10 ESSENT IAL (PRIMARY) SP SP 05/02/2018 W I12.9 HYPE RTENSIVE SP KIDNEY DISEASE WITH STAGE 1 THROUGH STAGE 4 CHRONIC KIDNEY DISEASE, OR UNSPECIFIED CHRONIC KIDNEY DISEASE SP 05/02/2018 W J30.2 OTHE R SEASONAL SP RHINITIS SP 05/02/2018 W 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 WITH ESOPHAGITIS SP 05/02/2018 W V12.29 PER HAYES HISTORY SP OTHER ENDOCRINE, METABOLIC, AND IMMUNITY DISORDERS SP 05/02/2018 W Z87.39 PER HAYES HISTORY SP OTHER DISEASES OF THE MUSCULOSKELETAL SYSTEM AND CONNECTIVE TISSUE SP 05/15/2018 W 372.00 ACU TE SP UNSPECIFIED SP 05/15/2018 W 379.99 OTH ER ILL-DEFINED SP OF EYE SP 05/15/2018 W H10.31 UNS PECIFIED ACUTE SP RIGHT EYE SP 05/15/2018 W L29.8 OTHE R PRURITUS SP SP 07/27/2018 CorrinaTerezahy W 401.9 SP ESSENTIAL HYPERTENSION SP 07/27/2018 Corrina, Aleyda W 403.00 SP CHRONIC KIDNEY DISEASE, MALIGNANT, WITH CHRONIC KIDNEY DISEASE STAGE I THROUGH STAGE IV, OR UNSPECIFIED SP 07/27/2018 Corrina, Aleyda W I10 ESSENTIAL SP HYPERTENSION SP 07/27/2018 Corrina, Aleyda W I12.9 SP CHRONIC KIDNEY DISEASE WITH STAGE 1 THROUGH STAGE 4 CHRONIC KIDNEY DISEASE, OR UNSPECIFIED CHRONIC KIDNEY DISEASE SP 07/27/2018 W 401.9 UNSP ECIFIED SP HYPERTENSION SP 07/27/2018 W 403.00 HYP ERTENSIVE SP KIDNEY DISEASE, MALIGNANT, WITH CHRONIC KIDNEY DISEASE STAGE I THROUGH STAGE IV, OR UNSPECIFIED SP 07/27/2018 W 780.79 OTH ER MALAISE AND SP SP 07/27/2018 W 784.0 HEAD ACHE SP SP 07/27/2018 W I10 ESSENT IAL (PRIMARY) SP SP 07/27/2018 W I12.9 HYPE RTENSIVE SP KIDNEY DISEASE WITH STAGE 1 THROUGH STAGE 4 CHRONIC KIDNEY DISEASE, OR UNSPECIFIED CHRONIC KIDNEY DISEASE SP 07/27/2018 W R51 HEADACHE SP 07/27/2018 W R53.1 WEAKNESS SP 07/31/2018 W 403.00 HYP ERTENSIVE SP KIDNEY DISEASE, MALIGNANT, WITH CHRONIC KIDNEY DISEASE STAGE I THROUGH STAGE IV, OR UNSPECIFIED SP 07/31/2018 W 427.81 SIN OATRIAL NODE SP SP 07/31/2018 W I12.9 HYPE RTENSIVE SP KIDNEY DISEASE WITH STAGE 1 THROUGH STAGE 4 CHRONIC KIDNEY DISEASE, OR UNSPECIFIED CHRONIC KIDNEY DISEASE SP 07/31/2018 W R00.1 ALISON YCARDIA, SP SP 08/01/2018 W 403.00 HYP ERTENSIVE SP KIDNEY DISEASE, MALIGNANT, WITH CHRONIC KIDNEY DISEASE STAGE I THROUGH STAGE IV, OR UNSPECIFIED SP 08/01/2018 W 585.3 DIGITAL COMMENTATOR KEVIN KIDNEY SP STAGE III (MODERATE) SP 08/01/2018 W 719.46 KATHY N IN JOINT SP LOWER LEG SP 08/01/2018 W 781.2 ABNO RMALITY OF GAIT SP SP 08/01/2018 W I12.9 HYPE RTENSIVE SP KIDNEY DISEASE WITH STAGE 1 THROUGH STAGE 4 CHRONIC KIDNEY DISEASE, OR UNSPECIFIED CHRONIC KIDNEY DISEASE SP 08/01/2018 W M25.561 PA IN IN RIGHT SP SP 08/01/2018 W N18.3 DIGITAL COMMENTATOR KEVIN KIDNEY SP STAGE 3 (MODERATE) SP 08/01/2018 W R26.81 UNS TEADINESS ON SP SP 08/07/2018 W 403.00 HYP ERTENSIVE SP KIDNEY DISEASE, MALIGNANT, WITH CHRONIC KIDNEY DISEASE STAGE I THROUGH STAGE IV, OR UNSPECIFIED SP 08/07/2018 W 585.3 DIGITAL COMMENTATOR KEVIN KIDNEY SP STAGE III (MODERATE) SP 08/07/2018 W 719.46 KATHY N IN JOINT SP LOWER LEG SP 08/07/2018 W 781.2 ABNO RMALITY OF GAIT SP SP 08/07/2018 W I12.9 HYPE RTENSIVE SP KIDNEY DISEASE WITH STAGE 1 THROUGH STAGE 4 CHRONIC KIDNEY DISEASE, OR UNSPECIFIED CHRONIC KIDNEY DISEASE SP 08/07/2018 W M25.561 PA IN IN RIGHT SP SP 08/07/2018 W N18.3 DIGITAL COMMENTATOR KEVIN KIDNEY SP STAGE 3 (MODERATE) SP 08/07/2018 W R26.9 UNSP ECIFIED SP OF GAIT AND MOBILITY SP 08/16/2018 W 715.16 OST EOARTHROSIS, SP PRIMARY, INVOLVING LOWER LEG SP 08/16/2018 W 719.46 KATHY N IN JOINT SP LOWER LEG SP 08/16/2018 W M17.11 UNI LATERAL PRIMARY SPOSTEOARTHRITIS, RIGHT KNEE SP 08/16/2018 W M25.561 PA IN IN RIGHT SP SP 10/10/2018 Corrina, Aleyda W 715.15 SP LOCALIZED, PRIMARY, INVOLVING PELVIC REGION AND THIGH SP 10/10/2018 Corrina, Aleyda W 719.45 PAIN IN SPJOINT INVOLVING PELVIC REGION AND THIGH SP 10/10/2018 Corrina, Aleyda W M16.11 SP PRIMARY OSTEOARTHRITIS, RIGHT HIP SP 10/10/2018 Corrina, Aleyda W M25.551 PAIN SP RIGHT HIP SP 10/10/2018 Corrina, Aleyda W 403.00 SP CHRONIC KIDNEY DISEASE, MALIGNANT, WITH CHRONIC KIDNEY DISEASE STAGE I THROUGH STAGE IV, OR UNSPECIFIED SP 10/10/2018 Corrina, Aleyda W 585.4 CHRONIC SP DISEASE, STAGE IV (SEVERE) SP 10/10/2018 Corrina, Aleyda W 715.15 SP LOCALIZED, PRIMARY, INVOLVING PELVIC REGION AND THIGH SP 10/10/2018 Corrina, Aleyda W 719.45 PAIN IN SPJOINT INVOLVING PELVIC REGION AND THIGH SP 10/10/2018 Corrina, Aleyda W I12.9 SP CHRONIC KIDNEY DISEASE WITH STAGE 1 THROUGH STAGE 4 CHRONIC KIDNEY DISEASE, OR UNSPECIFIED CHRONIC KIDNEY DISEASE SP 10/10/2018 Corrina, Aleyda W M16.11 SP PRIMARY OSTEOARTHRITIS, RIGHT HIP SP 10/10/2018 Corrina, Aleyda W M25.551 PAIN SP RIGHT HIP SP 10/10/2018 Corrina, Aleyda W N18.4 CHRONIC SP DISEASE, STAGE 4 (SEVERE) SP 10/10/2018 Corrina, Aleyda W 403.00 SP CHRONIC KIDNEY DISEASE, MALIGNANT, WITH CHRONIC KIDNEY DISEASE STAGE I THROUGH STAGE IV, OR UNSPECIFIED SP 10/10/2018 Corrina, Aleyda W 585.4 CHRONIC SP DISEASE, STAGE IV (SEVERE) SP 10/10/2018 Corrina, Aleyda W 715.15 SP LOCALIZED, PRIMARY, INVOLVING PELVIC REGION AND THIGH SP 10/10/2018 Corrina, Aleyda W 719.45 PAIN IN SPJOINT INVOLVING PELVIC REGION AND THIGH SP 10/10/2018 Corrina Aleyda W I12.9 SP CHRONIC KIDNEY DISEASE WITH STAGE 1 THROUGH STAGE 4 CHRONIC KIDNEY DISEASE, OR UNSPECIFIED CHRONIC KIDNEY DISEASE SP 10/10/2018 Corrina Aleyda W M16.11 SP PRIMARY OSTEOARTHRITIS, RIGHT HIP SP 10/10/2018 Corrina Aleyda W M25.551 PAIN SP RIGHT HIP SP 10/10/2018 Corrina Aleyda W N18.4 CHRONIC SP DISEASE, STAGE 4 (SEVERE) SP 10/19/2018 ROCIO, ALBANIA Willis 719.45 PAIN IN SP INVOLVING PELVIC REGION AND THIGH SP 10/19/2018 ROCIO, [place] Willis M25.551 PAIN IN SP HIP SP 10/19/2018 ROCIO, ALB[place]IA W 403.00 SP CHRONIC KIDNEY DISEASE, MALIGNANT, WITH CHRONIC KIDNEY DISEASE STAGE I THROUGH STAGE IV, OR UNSPECIFIED SP 10/19/2018 ROCIO, [place] Willis 585.4 CHRONIC SP DISEASE, STAGE IV (SEVERE) SP 10/19/2018 ROCIO, ALBAN[place] Willis 715.15 SP LOCALIZED, PRIMARY, INVOLVING PELVIC REGION AND THIGH SP 10/19/2018 ROCIO, ALB[place] Willis 719.45 PAIN IN SP INVOLVING PELVIC REGION AND THIGH SP 10/19/2018 ROCIO, ALBANIA Willis I12.9 SP CHRONIC KIDNEY DISEASE WITH STAGE 1 THROUGH STAGE 4 CHRONIC KIDNEY DISEASE, OR UNSPECIFIED CHRONIC KIDNEY DISEASE SP 10/19/2018 ROCIO, ALB[place] Willis M16.11 SP PRIMARY OSTEOARTHRITIS, RIGHT HIP SP 10/19/2018 ROCIO, ALBANIA Willis M25.551 PAIN IN SP HIP SP 10/19/2018 ROCIO, ALB[place] Willis N18.4 CHRONIC SP DISEASE, STAGE 4 (SEVERE) SP 10/19/2018 ROCIO, ALBANIA W 403.00 SP CHRONIC KIDNEY DISEASE, MALIGNANT, WITH CHRONIC KIDNEY DISEASE STAGE I THROUGH STAGE IV, OR UNSPECIFIED SP 10/19/2018 ROCIO, ALBANIA Willis 585.4 CHRONIC SP DISEASE, STAGE IV (SEVERE) SP 10/19/2018 ROCIO, ALBANIA Willis 715.15 SP LOCALIZED, PRIMARY, INVOLVING PELVIC REGION AND THIGH SP 10/19/2018 ROCIO, ALBANIA Willis 719.45 PAIN IN SP INVOLVING PELVIC REGION AND THIGH SP 10/19/2018 ROCIO, ALBANIA Willis I12.9 SP CHRONIC KIDNEY DISEASE WITH STAGE 1 THROUGH STAGE 4 CHRONIC KIDNEY DISEASE, OR UNSPECIFIED CHRONIC KIDNEY DISEASE SP 10/19/2018 ROCIO, ALBANIA Willis M16.11 SP PRIMARY OSTEOARTHRITIS, RIGHT HIP SP 10/19/2018 ROCIO, ALBANIA Willis M25.551 PAIN IN SP HIP SP 10/19/2018 ROCIO, ALBANIA Willis N18.4 CHRONIC SP DISEASE, STAGE 4 (SEVERE) SP 12/26/2018 JOSE SALINAS, KARINA Santos Ot Z01.818 SP ENCOUNTER FOR OTHER PREPROCEDURAL EXAMIN SP 12/28/2018 DELIA SALINAS, KAMLA Bazan Ot D64.9 SP ANEMIA, UNSPECIFIED SP 12/28/2018 DELIA SALINAS, KAMLA Bazan Ot N81.6 SP RECTOCELE SP 12/28/2018 DELIA SALINAS, KAMLA Bazan Ot R32 SP UNSPECIFIED URINARY INCONTINENCE SP 12/28/2018 DELIA SALINAS, KAMLA Bazan Ot Z01.810 SP ENCOUNTER FOR PREPROCEDURAL CARDIOVASCUL SP 12/28/2018 KAMLA LIN MD Ot Z01.812 SP ENCOUNTER FOR PREPROCEDURAL LABORATORY E SP 12/28/2018 KAMLA LIN MD Ot Z11.2 SP ENCOUNTER FOR SCREENING FOR OTHER BACTER SP 12/28/2018 JOSE SALINAS, KARINA Santos Ot E78.00 SP PURE HYPERCHOLESTEROLEMIA, UNSPECIFIED SP 12/28/2018 JOSE SALINAS, KARINA Santos Ot E78 .5 SP UNSPECIFIED SP 12/28/2018 JOSE SALINAS, KARINA Santos Ot H25.12 SP AGE-RELATED NUCLEAR CATARACT, LEFT EYE SP 12/28/2018 JOSE SALINAS, KARINA Santos Ot I10 SP (PRIMARY) HYPERTENSION SP 12/28/2018 JOSE SALINAS, KARINA Santos Ot M19.90 SP UNSPECIFIED OSTEOARTHRITIS, UNSPECIFIED SP 12/28/2018 JOSE SALINAS, KARINA Santos Ot Z79.899 SP OTHER HALF-WAY (CURRENT) DRUG THERAPY SP 12/28/2018 KARINA GARCIA MD Ot Z80 .9 SP HISTORY OF MALIGNANT NEOPLASM, UN SP 12/28/2018 KARINA GARCIA MD Ot Z88 .8 SP STATUS TO OT DRUG/MEDS/BIOL SUB SP 12/28/2018 KARINA GARCIA MD Ot Z90.49 SP ACQUIRED ABSENCE OF OTHER SPECIFIED PART SP 12/28/2018 KARINA GARCIA MD Ot Z90.710 SP ACQUIRED ABSENCE OF BOTH CERVIX AND UTER SP 01/04/2019 KARINA GARCIA MD Ot E78.00 SP PURE HYPERCHOLESTEROLEMIA, UNSPECIFIED SP 01/04/2019 KARINA GARCIA MD Ot E78 .5 SP UNSPECIFIED SP 01/04/2019 KARINA GARCIA MD Ot H25.12 SP AGE-RELATED NUCLEAR CATARACT, LEFT EYE SP 01/04/2019 KARINA GARCIA MD Ot I10 SP (PRIMARY) HYPERTENSION SP 01/04/2019 KARINA GARCIA MD Ot M19.90 SP UNSPECIFIED OSTEOARTHRITIS, UNSPECIFIED SP 01/04/2019 KARINA GARCIA MD Ot Z79.899 SP OTHER LABEL OPERATOR (CURRENT) DRUG THERAPY SP 01/04/2019 KARINA GARCIA MD Ot Z80 .9 SP HISTORY OF MALIGNANT NEOPLASM, UN SP 01/04/2019 KARINA GARCIA MD Ot Z88 .8 SP STATUS TO [facility] DRUG/MEDS/BIOL SUB SP 01/04/2019 KARINA GARCIA MD Ot Z90.49 SP ACQUIRED ABSENCE OF OTHER SPECIFIED PART SP 01/04/2019 KARINA GARCIA MD Ot Z90.710 SP ACQUIRED ABSENCE OF BOTH CERVIX AND UTER SP Procedures Code Description Performed By Per formed On POS [id number] RE PAIR PELVIC SUBCU/FASCIA, SP APPROAC 12/22/2014 SP [id number] DI LATION OF URETHRA, ENDO SP 12/22/2014 SP [id number] ERWIN PPLEMENT BLADDER NECK WITH SPSYNTH SUB, 12/22/2014 SP [id number] RE POSITION VAGINA, OPEN SP 12/22/2014 SP Results Test Result Range POS Vitamin D, 25 OH - 02/08/16 09:00 POS Vitamin D, 25 OH 19.80 ng/mL 25.00-100.0 0 SP PTH, Intact - 02/08/16 09:00 POS PTH, INTACT 111 PG/ML 15-65 SP Renal Panel - 02/18/16 12:57 POS Albumin 4.5 g/dL 3.6-5.1 SP BUN 47 mg/dL 5-25 SP Calcium 9.7 mg/dL 8.3-10.4 SP Chloride 101 mmol/L 95-114 SP CO2 22 mEq/L 22-33 SP Creat 2.31 mg/dL 0.50-1.50 SP eGFR 20 mL/min/1.73m2 >59 SP Glucose 111 mg/dL 70-110 SP Phosphorus 4.0 mg/dL 2.5-4.8 SP Potassium 4.9 mmol/L 3.5-5.3 SP Sodium 134 mmol/L 134-148 SP Renal Panel - 03/09/16 09:00 POS Albumin 4.5 g/dL 3.6-5.1 SP BUN 33 mg/dL 5-25 SP Calcium 9.7 mg/dL 8.3-10.4 SP Chloride 107 mmol/L 95-114 SP CO2 22 mEq/L 22-33 SP Creat 2.07 mg/dL 0.50-1.50 SP eGFR 23 mL/min/1.73m2 >59 SP Glucose 96 mg/dL 70-110 SP Phosphorus 3.9 mg/dL 2.5-4.8 SP Potassium 4.6 mmol/L 3.5-5.3 SP Sodium 143 mmol/L 134-148 SP BMP - 03/14/16 08:12 POS Anion Gap 16 6-14 SP BUN 35 mg/dL 5-25 SP Calcium 9.8 mg/dL 8.3-10.4 SP Chloride 105 mmol/L 95-114 SP CO2 25 mEq/L 22-33 SP Creat 2.02 mg/dL 0.50-1.50 SP eGFR 24 mL/min/1.73m2 >59 SP Glucose 90 mg/dL 70-110 SP Osmo 300 280-295 SP Potassium 4.4 mmol/L 3.5-5.3 SP Sodium 142 mmol/L 134-148 SP Lipid Panel - 04/28/16 09:30 POS C/HDL 2.6 3.7-6.7 SP Cholesterol 221 mg/dL 100-240 SP HDL 86 mg/dL 30-85 SP LDL-Calculated 118 mg/dL 0-100 SP Trig 85 mg/dL 35-160 SP VLDL 17 mg/dL 0-42 SP BNP - 07/07/16 09:30 POS BNP 68.40 pg/ml 0.00-100.00 SP BMP - 07/14/16 09:54 POS Anion Gap 16 6-14 SP BUN 28 mg/dL 5-25 SP Calcium 9.6 mg/dL 8.3-10.4 SP Chloride 101 mmol/L 95-114 SP CO2 24 mEq/L 22-33 SP Creat 1.89 mg/dL 0.50-1.50 SP eGFR 26 mL/min/1.73m2 >59 SP Glucose 93 mg/dL 70-110 SP Osmo 286 280-295 SP Potassium 4.7 mmol/L 3.5-5.3 SP Sodium 136 mmol/L 134-148 SP BMP - 07/28/16 08:10 POS Anion Gap 16 6-14 SP BUN 50 mg/dL 5-25 SP Calcium 9.9 mg/dL 8.3-10.4 SP Chloride 102 mmol/L 95-114 SP CO2 25 mEq/L 22-33 SP Creat 2.24 mg/dL 0.50-1.50 SP eGFR 21 mL/min/1.73m2 >59 SP Glucose 86 mg/dL 70-110 SP Osmo 297 280-295 SP Potassium 5.2 mmol/L 3.5-5.3 SP Sodium 138 mmol/L 134-148 SP [facility] - 08/16/16 08:50 POS Anion Gap 15 6-14 SP BUN 36 mg/dL 5-25 SP Calcium 9.9 mg/dL 8.3-10.4 SP Chloride 106 mmol/L 95-114 SP CO2 26 mEq/L 22-33 SP Creat 2.09 mg/dL 0.50-1.50 SP eGFR 23 mL/min/1.73m2 >59 SP Glucose 93 mg/dL 70-110 SP Osmo 301 280-295 SP Potassium 5.1 mmol/L 3.5-5.3 SP Sodium 142 mmol/L 134-148 SP Microalb/Creat - 09/05/16 08:30 POS Microalb 486.0 mg/L 0.0-20.0 SP UMicroalb/UCreat 406.56 mg/g 0.00-100.00 SP Urine Creatinine 119.5 mg/dl 0.0-50.0 SP Urine Culture - 09/05/16 08:30 POS PRELIM CULTURE RESULTS 10,000-20,000 Gram Po sitive Mixed Corrina SP SP FINAL CULTURE RESULTS 10,000-20,000 Gram Pos itive Mixed Corrina SP Skin Contaminant [id number] Further Workup done SP MEDIA PLATED Setup at 15:12 on 09/05/2016 SP CULTURE SOURCE urine SP Comprehensive Metabolic Panel - 11/22/16 09:56 POS Albumin 4.3 g/dL 3.6-5.1 SP ALP 86 U/L 35-130 SP ALT 12 U/L 6-45 SP Anion Gap 16 6-14 SP AST 14 U/L 2-40 SP BUN 31 mg/dL 5-25 SP Calcium 10.1 mg/dL 8.3-10.4 SP Chloride 104 mmol/L 95-114 SP CO2 27 mEq/L 22-33 SP Creat 1.95 mg/dL 0.50-1.50 SP eGFR 25 mL/min/1.73m2 >59 SP Globulin 2.8 g/dL 2.3-3.5 SP Glucose 95 mg/dL 70-110 SP Osmo 299 280-295 SP Potassium 4.5 mmol/L 3.5-5.3 SP Sodium 142 mmol/L 134-148 SP TBil 0.5 mg/dL 0.2-1.2 SP TP 7.1 g/dL 6.0-8.3 SP Lipid Panel - 11/22/16 09:56 POS C/HDL 3.3 3.7-6.7 SP Cholesterol 234 mg/dL 100-240 SP HDL 71 mg/dL 30-85 SP LDL-Calculated 129 mg/dL 0-100 SP Trig 168 mg/dL 35-160 SP VLDL 34 mg/dL 0-42 SP VIT B-12 - 01/12/17 09:30 POS Vitamin B12 487.00 pg/mL 213.00-816.00 SP Folate - 01/12/17 09:30 POS Folate 16.40 ng/mL 7.00-31.40 SP Vitamin D, 25 OH - 01/12/17 09:30 POS Vitamin D, 25 OH 32.20 ng/mL 25.00-100.0 0 SP PTH, Intact - 01/12/17 09:30 POS PTH, INTACT 56 PG/ML 15-65 SP Uric Acid - 04/21/17 09:20 POS Uric Acid 6.3 mg/dL 2.6-7.2 SP Vitamin D, 25 OH - 05/17/17 12:28 POS Vitamin D, 25 OH 26.60 ng/mL 25.00-100.0 0 SP PTH, Intact - 05/17/17 12:28 POS PTH, INTACT 109 PG/ML 15-65 SP Vitamin D, 25 OH - 07/14/17 08:50 POS Vitamin D, 25 OH 24.10 ng/mL 25.00-100.0 0 SP Magnesium - 09/05/17 09:10 POS Mg++ 2.5 mg/dL 1.6-2.6 SP Vitamin D, 25 OH - 10/13/17 08:30 POS Vitamin D, 25 OH 28.50 ng/mL 25.00-100.0 0 SP Iron - 01/12/18 09:00 POS Iron 86 ug/dL 70-200 SP IFOBT Occult Blood - 01/16/18 14:25 POS IFOBT Occult Blood POSITIVE Negative SP CBC with Auto Diff - 01/23/18 09:25 POS Baso% 0.60 % 0.00-2.50 SP Eos 0.1 K/uL 0.0-0.7 SP Eos% 1.5 % 0.0-7.0 SP Hct 31.8 % 36.0-46.0 SP Hgb 10.2 g/dL 13.0-15.0 SP Lym 1.80 K/uL 0.60-3.40 SP Lym% 38.0 % 10.0-50.0 SP MCH 30.3 pg 27.0-31.0 SP MCHC 32.1 g/dL 32.0-36.0 SP MCV 94.4 fL 80.0-97.0 SP [place]% 7.2 % 0.0-12.0 SP MPV 9.8 fL 7.4-10.0 SP Mj% 52.7 % 37.0-80.0 SP Plt 322 K/uL 150-400 SP RBC 3.37 M/uL 3.60-5.00 SP RDW 12.3 % 11.6-14.8 SP WBC 4.74 K/uL 5.00-10.00 SP Mj 2.50 K/uL 2.00-6.90 SP [place] 0.3 K/uL 0.0-0.9 SP Baso 0.0 K/uL 0.0-0.2 SP Protime - 01/31/18 13:37 POS INR 1.0 1.0-4.0 SP Protime 11.3 Sec 9.9-12.8 SP Surgical Pathology - 02/07/18 09:40 POS Surg Path Sent to [facility] SP Vitamin D, 25 OH - 04/05/18 08:50 POS Vitamin D, 25 OH 52.20 ng/mL 25.00-100.0 0 SP PTH, Intact - 04/05/18 08:50 POS PTH, INTACT 51 PG/ML 15-65 SP Ferritin - 06/25/18 08:42 POS Ferritin 185.89 ng/mL 4.63-204.00 SP Renal Panel - 07/10/18 13:41 POS Albumin 4.3 g/dL 3.6-5.1 SP BUN 39 mg/dL 5-25 SP Calcium 10.2 mg/dL 8.3-10.4 SP Chloride 104 mmol/L 95-114 SP CO2 21 mEq/L 22-33 SP Creat 2.54 mg/dL 0.50-1.50 SP eGFR 18 mL/min/1.73m2 >59 SP Glucose 91 mg/dL 70-110 SP Phosphorus 4.8 mg/dL 2.5-4.8 SP Potassium 4.6 mmol/L 3.5-5.3 SP Sodium 137 mmol/L 134-148 SP Creatinine Clearance - 07/10/18 13:46 POS Creat 2.54 mg/dL 0.50-1.50 SP Creatine Clearance 24 mL/min 80-110 SP Total Volume 3100 mL 0-4000 SP Renal Panel - 07/27/18 09:15 POS Albumin 4.3 g/dL 3.6-5.1 SP BUN 35 mg/dL 5-25 SP Calcium 10.2 mg/dL 8.3-10.4 SP Chloride 104 mmol/L 95-114 SP CO2 26 mEq/L 22-33 SP Creat 2.48 mg/dL 0.50-1.50 SP eGFR 19 mL/min/1.73m2 >59 SP Glucose 89 mg/dL 70-110 SP Phosphorus 4.2 mg/dL 2.5-4.8 SP Potassium 4.5 mmol/L 3.5-5.3 SP Sodium 139 mmol/L 134-148 SP Urine Protein/Creat - 08/28/18 13:26 POS MTP 120 mg/dL 0-20 SP Urine Creatinine 157.1 mg/dl 0.0-50.0 SP Urine Protein/Creat Ratio 0.76 mg/dL SP Renal Panel - 10/24/18 09:00 POS Albumin 4.2 g/dL 3.6-5.1 SP BUN 39 mg/dL 5-25 SP Calcium 9.5 mg/dL 8.3-10.4 SP Chloride 111 mmol/L 95-114 SP CO2 22 mEq/L 22-33 SP Creat 2.65 mg/dL 0.50-1.50 SP eGFR 17 mL/min/1.73m2 >59 SP Glucose 95 mg/dL 70-110 SP Phosphorus 4.2 mg/dL 2.5-4.8 SP Potassium 4.5 mmol/L 3.5-5.3 SP Sodium 144 mmol/L 134-148 SP VIT B-12 - 01/08/19 09:15 POS Vitamin B12 >2000.00 pg/mL 213.00-816.00 SP Vitamin D, 25 OH - 01/08/19 09:15 POS Vitamin D, 25 OH 24.80 ng/mL 25.00-100.0 0 SP Hepatitis Panel (4) - 01/16/19 13:11 POS HBsAg Screen Negative Negative SP Hep A Ab, IgM Negative Negative SP Hep B Core Ab, IgM Negative Negative SP Hep C Virus Ab <0.1 s/co ratio 0.0-0.9 SP Reticulocyte Count - 01/16/19 13:11 POS Reticulocyte Count 1.4 % 0.6-2.6 SP PTH, Intact - 01/16/19 13:11 POS PTH, Intact 65 pg/mL 15-65 SP VIT B- - 01/16/19 13:11 POS Vitamin B12 >2000.00 pg/mL 213.00-816.00 SP Vitamin D, 25 OH - 01/16/19 13:11 POS Vitamin D, 25 OH 25.10 ng/mL 25.00-100.0 0 SP Encounters ACCT No. Visit Date/Time Discharge Status POS Pt. Type Provider Facility Loc./Un it POS Complaint POS [id number] 01/18/2019 11:10:00 SP Registration SP [id number] 12/28/2018 05:52:00 07:55:00 SP DIS Outpatient KARINA GARCIA MD [facility] CATARACT LEFT EYE SP [id number] 12/26/2018 11:09:00 12:59:00 SP DIS Outpatient KARINA GARCIA MD [facility] PREOP CATARACT LEFT EYE SP [id number] 12/24/2014 08:57:00 015 16:35:00 SP DIS Inpatient KAMLA LIN MD [facility] WS RECTOCELE, INCONTENE NCE, VAGINAL SP CRYSTAL [id number] 12/19/2014 08:41:00 015 23:59:59 SP CLS Outpatient KAMLA LIN MD [facility] PREOP RECTOCELE, INCONTENC E SP [id number] 02/01/2019 07:30:00 P EN KARINA CORTES MD [facility] SDC CATARACT RIGHT EYE SP [id number] 11/04/2016 16:14:00 SP Registration SP [id number] 01/08/2019 09:37:00 01/08/2019 23:59: 00 DIS [facility] [id number] 01/08/2019 08:34:00 01/08/2019 23:59: 00 DIS SP Outpatient FABALIDJOSE RAFAEL SP [id number] 10/24/2018 14:20:00 10/24/2018 23:59: 00 DIS SP Outpatient KHALIJOSE RAFAEL Barney SP [id number] 10/24/2018 08:48:00 10/24/2018 23:59: 00 DIS [facility] [id number] 10/19/2018 08:15:00 10/19/2018 23:59: 00 DIS SP Outpatient ALBANIA CHAN [id number] 10/10/2018 08:47:00 10/10/2018 23:59: 00 DIS SP Outpatient Aleyda Houser [id number] 08/28/2018 13:24:00 08/28/2018 23:59: 00 DIS SP Outpatient JOSE RAFAEL DIAZ [id number] 07/27/2018 12:27:00 07/27/2018 23:59: 00 DIS SP Outpatient Aleyda Houser [id number] 07/10/2018 13:38:00 07/10/2018 23:59: 00 DIS SP Outpatient JOSE RAFAEL DIAZ [id number] 06/25/2018 13:08:00 06/25/2018 23:59: 00 DIS SP Outpatient JOSE RAFAEL DIAZ SP [id number] 04/05/2018 14:14:00 04/05/2018 23:59: 00 DIS SP Outpatient FABALIJOSE RAFAEL Barney SP SP [id number] 02/07/2018 07:36:00 02/07/2018 11:28: 00 DIS SP Outpatient Alf Ford SP SP [id number] 01/31/2018 13:19:00 01/31/2018 23:59: 00 DIS SP Outpatient Alf Ford SP SP [id number] 01/16/2018 14:25:00 01/16/2018 23:59: 00 DIS SP Outpatient Brokob, Kandi SP SP [id number] 01/12/2018 10:30:00 01/12/2018 23:59: 00 DIS SP Outpatient Corrina, Aleyda SP [id number] 10/13/2017 09:13:00 10/13/2017 23:59: 00 DIS SP Outpatient Corrina, Aleyda SP [id number] 09/05/2017 13:40:00 09/05/2017 23:59: 00 DIS SP Outpatient AFBALIDJOSE RAFAEL SP SP [id number] 07/14/2017 09:08:00 07/14/2017 23:59: 00 DIS SP Outpatient Corrina, Aleyda SP [id number] 05/17/2017 12:08:00 05/17/2017 23:59: 00 DIS SP Outpatient KHALID, JOSE RAFAEL SP SP [id number] 04/21/2017 10:26:00 04/21/2017 23:59: 00 DIS SP Outpatient Corrina, Aleyda SP [id number] 03/27/2017 15:07:00 03/27/2017 23:59: 00 DIS SP Outpatient Brokob, Kandi SP SP [id number] 01/12/2017 11:48:00 01/12/2017 23:59: 00 DIS SP Outpatient KHALID, JOSE RAFAEL SP SP [id number] 11/22/2016 09:55:00 11/22/2016 23:59: 00 DIS SP Outpatient Corrina, Aleyda SP [id number] 09/05/2016 09:06:00 09/05/2016 23:59: 00 DIS SP Outpatient Brown, Robert SP SP [id number] 08/16/2016 09:05:00 08/16/2016 23:59: 00 DIS SP Outpatient Corrina, Aleyda SP [id number] 07/28/2016 09:53:00 07/28/2016 23:59: 00 DIS SP Outpatient Robert Griggs SP SP [id number] 07/14/2016 09:52:00 07/14/2016 23:59: 00 DIS SP Outpatient Corrina, Aleyda SP [id number] 07/07/2016 09:30:00 07/07/2016 23:59: 00 DIS SP Outpatient Corrina, Aleyda SP [id number] 04/28/2016 09:52:00 04/28/2016 23:59: 00 DIS SP Outpatient Corrina, Aleyda SP [id number] 03/14/2016 08:17:00 03/14/2016 23:59: 00 DIS SP Outpatient Corrina, Aleyda SP [id number] 03/09/2016 12:04:00 03/09/2016 23:59: 00 DIS SP Outpatient Robert Griggs SP SP [id number] 02/18/2016 12:53:00 02/18/2016 23:59: 00 DIS SP Outpatient CHHAYA MYERS SP SP [id number] 02/08/2016 15:05:00 02/08/2016 23:59: 00 DIS SP Outpatient CHHAYA MYERS SP SP [id number] 01/16/2019 12:59:35 Document SP SP [id number] 12/04/2018 11:28:35 Document SP SP [id number] 12/04/2018 11:23:05 Document SP SP [id number] 10/19/2018 08:52:05 Document SP SP [id number] 08/16/2018 14:36:00 Document SP SP [id number] 08/07/2018 08:34:00 Document SP SP [id number] 08/01/2018 08:58:00 Document SP SP [id number] 07/31/2018 08:31:00 Document SP SP [id number] 07/27/2018 08:19:00 Document SP SP [id number] 05/15/2018 11:03:00 Document SP SP [id number] 05/02/2018 08:46:00 Document SP SP [id number] 02/07/2018 08:48:15 Document SP SP [id number] 01/23/2018 10:37:28 Document SP SP [id number] 01/12/2018 08:18:00 Document SP SP [id number] 10/11/2017 08:20:00 Document SP SP [id number] 09/05/2017 08:43:00 Document SP SP [id number] 07/12/2017 08:19:00 Document SP SP [id number] 05/09/2017 13:15:00 Document SP SP [id number] 04/21/2017 08:26:00 Document SP SP [id number] 04/13/2017 08:19:00 Document SP SP [id number] 03/31/2017 09:48:00 Document SP SP [id number] 03/29/2017 09:04:00 Document SP SP [id number] 03/27/2017 13:42:00 Document SP SP [id number] 01/12/2017 08:28:00 Document SP SP [id number] 12/16/2016 08:30:00 Document SP SP [id number] 11/22/2016 08:19:00 Document SP SP [id number] 11/18/2016 08:17:00 Document SP SP
== END 2018-12-28 07:55 | disposition home or self-care (01) ==
LOC: SDC 05:52
PROVIDERS: ATTEND Specialist
DX: H25.12 Age-related nuclear cataract, left eye (principal); I10 Essential (primary) hypertension; M19.90 Unspecified osteoarthritis, unspecified site; E78.00 Pure hypercholesterolemia, unspecified; E78.5 Hyperlipidemia, unspecified; Z90.710 Acquired absence of both cervix and uterus; Z88.8 Allergy status to other drugs, medicaments and biological substances; Z90.49 Acquired absence of other specified parts of digestive tract; Z79.899 Other long term (current) drug therapy; Z80.9 Family history of malignant neoplasm, unspecified

== ENCOUNTER 2019-01-30 10:00 | Outpatient (CLI) | payer MEDICARE ==
[~2019-01-30 10:00] MED LIST changes: +METO-387 PO; -MTP25TSR PO; -SIMV20TA26 PO; +SIMV20TA3 PO
== END 2019-01-30 10:57 ==
LOC: PREOP 10:00
PROVIDERS: ATTEND Specialist
DX: Z01.818 Encounter for other preprocedural examination (principal)

== ENCOUNTER 2019-02-01 05:50 | Day surgery (SDC) | payer MEDICARE ==
[~2019-02-01] VITALS: Ht 157 cm; Wt 62.7 kg
[~2019-02-01 05:50] MED LIST changes: -METO-387 PO; +MTP25TSR PO; +SIMV20TA26 PO; -SIMV20TA3 PO
[2019-02-01] MEDS ORDERED: TIMOLOL MALEATE 0.5% 5 ML (TIMOPTIC) BTL OU PRN (06:15)
[2019-02-01] MEDS ORDERED: POVIDONE (BETADINE) OPHTH SOLN 5% 30 ML OP ONE (06:15)
[2019-02-01] MEDS ORDERED: MOXIFLOXACIN OPHTH SOLN 5 MG/ML 0.3 ML SYRINGE OP ONE (06:15)
[2019-02-01] MEDS ORDERED: LIDOCAINE PF 1% 2 ML AMP IR PRN (06:15)
[2019-02-01] MEDS: TETRACAINE 0.5% OPHTH SOLN 4 ML BTL (SINGLE DOSE ONLY) OU PRN ×4 (06:16→06:43)
[2019-02-01 06:18] VITALS: BP 163/67
[2019-02-01] MEDS: PHENYLEPHRINE 10% OPHTH (NEO-SYN) 5 ML BTL OU SCH ×3 (06:33→06:44)
[2019-02-01] MEDS: CYCLOPENTOLATE 1% (CYCLOGYL) 2 ML DROPS OP SCH ×3 (06:33→06:43)
--- NOTE | 2019-02-01 06:56 | Ophthalmologist Pre-Op Note ---
Pre-Operative Progress Note H&P Reviewed The H&P was reviewed, patient examined and no changes noted. Date H&P Reviewed: Feb 01, 2019 Time H&P Reviewed: 06:51 Pre-Op Dx Cataract, Right Eye KARINA GARCIA MD Feb 01, 2019 06:56 POS
[2019-02-01] MEDS ORDERED: MIDAZOLAM 2 MG/2 ML (VERSED) VIAL ONE (07:03)
--- NOTE | 2019-02-01 07:26 | Ophthalmology Operative Report ---
Cataract removal/placement IOL PREOPERATIVE DIAGNOSIS: Cataract Right Eye POSTOPERATIVE DIAGNOSIS: Cataract Right Eye PROCEDURE: Cataract removal and placement of posterior chamber implant, right eye SURGEON: Wang Garcia ANESTHESIA: Topical with sedation COMPLICATIONS: None ESTIMATED BLOOD LOSS: Minimal DESCRIPTION OF PROCEDURE: After proper informed consent was obtained, the patient, a 78 female, was taken to the Operating Room and the right eye was anesthetized with tetracaine. The right eye was then prepped and draped in the usual manner. A wire lid speculum was placed. A paracentesis was made at the left hand position. Preservative free lidocaine was injected into the anterior chamber followed by viscoelastic. A clear corneal incision was made in the temporal position. A capsulorrhexis was preformed and the central nuclear and cortical material were removed. The posterior capsule was polished and Rajan AU00T0 20.5 IOL was placed into the capsular bag. The residual viscoelastic was aspirated and balanced saline solution was injected into the anterior chamber. Moxifloxacin was injected into the anterior chamber. The wound was checked and found to be water tight. The patient tolerated the procedure well without complications. WANG GARCIA MD Feb 01, 2019 07:26 POS
[2019-02-01] MEDS ORDERED: acetaZOLAMIDE ER 500 MG CAP (DIAMOX SEQUELS) PO ONE (07:30)
[2019-02-01 07:37] VITALS: BP 174/69
--- NOTE | 2019-02-01 11:40 | Anesthesia-General Post-Op ---
MAC Patient Condition Mental Status/LOC: Same as Preop Cardiovascular: Satisfactory Nausea/Vomiting: Absent Respiratory: Satisfactory Pain: Controlled Complications: Absent Post Op Complications Complications None Follow Up Care/Instructions Patient Instructions None needed. Anesthesiology Discharge Order Discharge Order Patient is doing well, no complaints, stable vital signs, no apparent adverse anesthesia problems. No complications reported per nursing. RAISA LAWS CRNA Feb 01, 2019 11:40 POS
--- OUTSIDE RECORDS SUMMARY | 2019-02-27 07:30 | XMS REPORT | Continuity of Care Document ---
Demographics Preferred Language Unknown Marital Status Unknown Yarsanism Affiliation Unknown Race Unknown Ethnic Group Unknown Author Organization Unknown Address Unknown Phone Unavailable Allergies Active Description Code Type Severity Reaction Onset Reported/Identified Relationship to Patient Clinical Status Yes AMLODIPINE MODERATE MODERATE Yes AMLODIPINE MODERATE OTHER Yes HYDROCHLOROTHIAZIDE MODERATE MODERATE Yes HYDROCHLOROTHIAZIDE MODERATE OTHER Yes HYDROXYZINE HCL M ODERATE MODERATE Yes HYDROXYZINE HCL M ODERATE OTHER Yes No Known Drug Allergies [id number] Drug Allergy Unknown N/A 12/19/2014 Yes amlodipine [id number] Drug Allerg y Unknown "MADE ME WILD" 11/04/2016 Yes hydrochlorothiazide [id number] Drug Allergy Unknown "MADE ME WILD" 11/04 Yes amlodipine [id number] Drug Allerg y Moderate "MADE ME WILD" 12/26/2018 Yes hydrochlorothiazide [id number] Drug Allergy Moderate "MADE ME WILD" 11/29 Medications Medication Packaging Start Date St op Date Route Dosage Sig NORMAL SALINE 1000CC IV BAG INJ 0.9 % (NS 1000CC IV BAG) ml 02/07/2018 02/22/2018 CONTINUOUSEVERY 0 Hour MEPERIDINE SYRINGE INJ 25 MG /CC (DEMEROL SYRINGE) MG 02/07/2018 02/07/2018 PRN ONCE ONDANSETRON VIAL INJ 4 MG/2CC (ZOFRAN 2CC VIAL) MG 02/07/2018 02/07/2018 PRN ONCE Problems Date Dx Coded Attending Type Code Diagnosis Diagnosed By 12/25/2014 KAMLA LIN MD, Ot B97.89 OTH VIRAL AGENTS THE CAUSE OF DISEASE 12/25/2014 KAMLA LIN MD, Ot D64.9 ANEMIA, UNSPECIFIED 12/25/2014 KAMLA LIN MD, Ot N32.81 OVERACTIVE BLADDER 12/25/2014 KAMLA LIN MD, Ot N35.9 URETHRAL STRICTURE, UNSPECIFIED 12/25/2014 KAMLA LIN MD, Ot N39.3 STRESS INCONTINENCE (FEMALE) (MALE) 12/25/2014 DELIA SALINAS, KAMLA Bazan Ot N81.4 UTEROVAGINAL PROLAPSE, UNSPECIFIED 12/25/2014 DELIA SALINAS, KAMLA Bazan Ot R33.9 RETENTION OF URINE, UNSPECIFIED 12/25/2014 DELIA SALINAS, KAMLA Bazan Ot R50.82 POSTPROCEDURAL FEVER 12/26/2014 DELIA SALINAS, KAMLA Bazan Ot D64.9 12/26/2014 DELIA SALINAS, KAMLA Bazan Ot N81.6 12/26/2014 DELIA SALINAS, KAMLA Bazan Ot R32 12/26/2014 DELIA SALINAS, KAMLA Bazan Ot Z01.810 12/26/2014 DELIA SALINAS, KAMLA Bazan Ot Z01.812 12/26/2014 DELIA SALINAS, KAMLA Bazan Ot Z11.2 01/06/2015 DELIA SALINAS, KAMLA Bazan Ot D64.9 01/06/2015 DELIA SALINAS, KAMLA Bazan Ot N81.6 01/06/2015 DELIA SALINAS, KAMLA Bazan Ot R32 01/06/2015 DELIA SALINAS, KAMLA Bazan Ot Z01.810 01/06/2015 DELIA SALINAS, KAMLA Bazan Ot Z01.812 01/06/2015 DELIA SALINAS, KAMLA Bazan Ot Z11.2 11/04/2016 Ot E78.00 PUR E HYPERCHOLESTEROLEMIA, UNSPECIFIED 11/04/2016 Ot I10 ESSENT IAL (PRIMARY) HYPERTENSION 11/04/2016 Ot M19.90 UNS PECIFIED OSTEOARTHRITIS, UNSPECIFIED 11/04/2016 Ot R03.0 ELEV ATED BLOOD- PRESSURE READING, W/O CARLOS 11/04/2016 Ot Z82.49 FAM LIBBY HX OF ISCHEM HEART DIS AND OTH DI 11/04/2016 Ot 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 11/04/2016 Ot Z90.710 AC QUIRED ABSENCE OF BOTH CERVIX AND UTER 11/07/2016 Ot E78.00 PUR E HYPERCHOLESTEROLEMIA, UNSPECIFIED 11/07/2016 Ot I10 ESSENT IAL (PRIMARY) HYPERTENSION 11/07/2016 Ot M19.90 UNS PECIFIED OSTEOARTHRITIS, UNSPECIFIED 11/07/2016 Ot R03.0 ELEV ATED BLOOD- PRESSURE READING, W/O CARLOS 11/07/2016 Ot Z82.49 FAM LIBBY HX OF ISCHEM HEART DIS AND OTH DI 11/07/2016 Ot 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 11/07/2016 Ot Z90.710 AC QUIRED ABSENCE OF BOTH CERVIX AND UTER 11/18/2016 W 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 11/18/2016 W 285 OTHER AND UNSPECIFIED ANEMIAS 11/18/2016 W 403.90 HYP ERTENSIVE CHRONIC KIDNEY DISEASE, UNSPECIFIED, WITH CHRONIC KIDNEY DISEASE STAGE I THROUGH STAGE IV, OR UNSPECIFIED 11/18/2016 W 477.8 ABEL RGIC RHINITIS DUE TO OTHER ALLERGEN 11/18/2016 W 780.79 OTH ER MALAISE AND FATIGUE 11/18/2016 W D64.9 ANEM IA, UNSPECIFIED 11/18/2016 W E78.5 HYPE RLIPIDEMIA, UNSPECIFIED 11/18/2016 W I12.9 HYPE RTENSIVE CHRONIC KIDNEY DISEASE WITH STAGE 1 THROUGH STAGE 4 CHRONIC KIDNEY DISEASE, OR UNSPECIFIED CHRONIC KIDNEY DISEASE 11/18/2016 W J30.2 OTHE R SEASONAL ALLERGIC RHINITIS 11/18/2016 W R54 AGE-RE LATED PHYSICAL DEBILITY 11/22/2016 Aleyda Houser W 401.9 UNSPECIFIED ESSENTIAL HYPERTENSION 11/22/2016 Aleyda Houser W 585.3 CHRONIC KIDNEY DISEASE, STAGE III (MODERATE) 11/22/2016 Aleyda Houser W I10 ESSENTIAL (PRIMARY) HYPERTENSION 11/22/2016 Aleyda Houser W I13.0 HYPERTENSIVE HEART AND CHRONIC KIDNEY DISEASE WITH HEART FAILURE AND STAGE 1 THROUGH STAGE 4 CHRONIC KIDNEY DISEASE, OR UNSPECIFIED CHRONIC KIDNEY DISEASE 11/22/2016 Aleyda Houser W 272.8 OTHER DISORDERS OF LIPOID METABOLISM 11/22/2016 Aleyda Houser W 282.3 OTHER HEMOLYTIC ANEMIAS DUE TO ENZYME DEFICIENCY 11/22/2016 Aleyda Houser W 401.9 UNSPECIFIED ESSENTIAL HYPERTENSION 11/22/2016 Aleyda Houser W 585.3 CHRONIC KIDNEY DISEASE, STAGE III (MODERATE) 11/22/2016 Aleyda Houser W D55.2 ANEMIA DUE TO DISORDERS OF GLYCOLYTIC ENZYMES 11/22/2016 Aleyda Houser E78.5 HYPERLIPIDEMIA, UNSPECIFIED 11/22/2016 Aleyda Houser W I10 ESSENTIAL (PRIMARY) HYPERTENSION 11/22/2016 Aleyda Houser W I13.0 HYPERTENSIVE HEART AND CHRONIC KIDNEY DISEASE WITH HEART FAILURE AND STAGE 1 THROUGH STAGE 4 CHRONIC KIDNEY DISEASE, OR UNSPECIFIED CHRONIC KIDNEY DISEASE 11/22/2016 Aleyda Houser W 272.8 OTHER DISORDERS OF LIPOID METABOLISM 11/22/2016 Aleyda Houser W 282.3 OTHER HEMOLYTIC ANEMIAS DUE TO ENZYME DEFICIENCY 11/22/2016 Corrina Aleyda W 401.9 UNSPECIFIED ESSENTIAL HYPERTENSION 11/22/2016 Aleyda Houser W 585.3 CHRONIC KIDNEY DISEASE, STAGE III (MODERATE) 11/22/2016 Aleyda Houser W D55.2 ANEMIA DUE TO DISORDERS OF GLYCOLYTIC ENZYMES 11/22/2016 Aleyda Houser W E78.5 HYPERLIPIDEMIA, UNSPECIFIED 11/22/2016 Aleyda Houser W I10 ESSENTIAL (PRIMARY) HYPERTENSION 11/22/2016 Aleyda Houser W I13.0 HYPERTENSIVE HEART AND CHRONIC KIDNEY DISEASE WITH HEART FAILURE AND STAGE 1 THROUGH STAGE 4 CHRONIC KIDNEY DISEASE, OR UNSPECIFIED CHRONIC KIDNEY DISEASE 11/22/2016 W 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 11/22/2016 W 282.3 OTHE R HEMOLYTIC ANEMIAS DUE TO ENZYME DEFICIENCY 11/22/2016 W 401.9 UNSP ECIFIED ESSENTIAL HYPERTENSION 11/22/2016 W 585.3 GARDENER KEVIN KIDNEY DISEASE, STAGE III (MODERATE) 11/22/2016 W D55.2 ANEM IA DUE TO DISORDERS OF GLYCOLYTIC ENZYMES 11/22/2016 W E78.5 HYPE RLIPIDEMIA, UNSPECIFIED 11/22/2016 W I10 ESSENT IAL (PRIMARY) HYPERTENSION 11/22/2016 W I13.0 HYPE RTENSIVE HEART AND CHRONIC KIDNEY DISEASE WITH HEART FAILURE AND STAGE 1 THROUGH STAGE 4 CHRONIC KIDNEY DISEASE, OR UNSPECIFIED CHRONIC KIDNEY DISEASE 11/22/2016 CorrinaTerezahy W 272.8 OTHER DISORDERS OF LIPOID METABOLISM 11/22/2016 Corrina Aleyda W 282.3 OTHER HEMOLYTIC ANEMIAS DUE TO ENZYME DEFICIENCY 11/22/2016 Corrina Aleyda W 401.9 UNSPECIFIED ESSENTIAL HYPERTENSION 11/22/2016 Corrina Aleyda W 585.3 CHRONIC KIDNEY DISEASE, STAGE III (MODERATE) 11/22/2016 Corrina Aleyda W D55.2 ANEMIA DUE TO DISORDERS OF GLYCOLYTIC ENZYMES 11/22/2016 Aleyda Houser W E78.5 HYPERLIPIDEMIA, UNSPECIFIED 11/22/2016 Aleyda Houser W I10 ESSENTIAL (PRIMARY) HYPERTENSION 11/22/2016 Aleyda Houser W I13.0 HYPERTENSIVE HEART AND CHRONIC KIDNEY DISEASE WITH HEART FAILURE AND STAGE 1 THROUGH STAGE 4 CHRONIC KIDNEY DISEASE, OR UNSPECIFIED CHRONIC KIDNEY DISEASE 12/16/2016 W 401.9 UNSP ECIFIED ESSENTIAL HYPERTENSION 12/16/2016 W 403.00 HYP ERTENSIVE CHRONIC KIDNEY DISEASE, MALIGNANT, WITH CHRONIC KIDNEY DISEASE STAGE I THROUGH STAGE IV, OR UNSPECIFIED 12/16/2016 W 477.0 ABEL RGIC RHINITIS DUE TO POLLEN 12/16/2016 W 719.46 KATHY N IN JOINT INVOLVING LOWER LEG 12/16/2016 W I10 ESSENT IAL (PRIMARY) HYPERTENSION 12/16/2016 W I12.9 HYPE RTENSIVE CHRONIC KIDNEY DISEASE WITH STAGE 1 THROUGH STAGE 4 CHRONIC KIDNEY DISEASE, OR UNSPECIFIED CHRONIC KIDNEY DISEASE 12/16/2016 W J30.1 ABEL RGIC RHINITIS DUE TO POLLEN 12/16/2016 W M25.561 PA IN IN RIGHT KNEE 01/12/2017 JOSE RAFAEL DIAZ W 268.9 UNSPECIFIED VITAMIN D DEFICIENCY 01/12/2017 JOSE RAFAEL DIAZ W 401.0 MALIGNANT ESSENTIAL HYPERTENSION 01/12/2017 JOSE RAFAEL DIAZ W 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) 01/12/2017 JOSE RAFAEL DIAZ W E55.9 VITAMIN D DEFICIENCY, UNSPECIFIED 01/12/2017 JOSE RAFAEL DIAZ W I10 ESSENTIAL (PRIMARY) HYPERTENSION 01/12/2017 JOSE RAFAEL DIAZ W 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 01/12/2017 W 268.9 UNSP ECIFIED VITAMIN D DEFICIENCY 01/12/2017 W 272.4 OTHE R AND UNSPECIFIED HYPERLIPIDEMIA 01/12/2017 W 282.3 OTHE R HEMOLYTIC ANEMIAS DUE TO ENZYME DEFICIENCY 01/12/2017 W 401.0 NONI GNANT ESSENTIAL HYPERTENSION 01/12/2017 W 403.00 HYP ERTENSIVE CHRONIC KIDNEY DISEASE, MALIGNANT, WITH CHRONIC KIDNEY DISEASE STAGE I THROUGH STAGE IV, OR UNSPECIFIED 01/12/2017 W 477.0 ABEL RGIC RHINITIS DUE TO POLLEN 01/12/2017 W 588.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 ONDARY HYPERPARATHYROIDISM (OF RENAL ORIGIN) 01/12/2017 W D55.2 ANEM IA DUE TO DISORDERS OF GLYCOLYTIC ENZYMES 01/12/2017 W E55.9 CHRISTINA MIN D DEFICIENCY, UNSPECIFIED 01/12/2017 W E78.5 HYPE RLIPIDEMIA, UNSPECIFIED 01/12/2017 W I10 ESSENT IAL (PRIMARY) HYPERTENSION 01/12/2017 W I12.9 HYPE RTENSIVE CHRONIC KIDNEY DISEASE WITH STAGE 1 THROUGH STAGE 4 CHRONIC KIDNEY DISEASE, OR UNSPECIFIED CHRONIC KIDNEY DISEASE 01/12/2017 W J30.1 ABEL RGIC RHINITIS DUE TO POLLEN 01/12/2017 W 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 03/27/2017 Kandi Malik W 487.1 INFLUENZA WITH OTHER RESPIRATORY MANIFESTATIONS 03/27/2017 LangJonatan hairya W J11.1 INFLUENZA DUE TO UNIDENTIFIED INFLUENZA VIRUS WITH OTHER RESPIRATORY MANIFESTATIONS 03/27/2017 W 487.1 INFL UENZA WITH OTHER RESPIRATORY MANIFESTATIONS 03/27/2017 W J11.1 INFL UENZA DUE TO UNIDENTIFIED INFLUENZA VIRUS WITH OTHER RESPIRATORY MANIFESTATIONS 03/29/2017 W 488.12 INF LUENZA DUE TO IDENTIFIED 2009 H1N1 INFLUENZA VIRUS WITH OTHER RESPIRATORY MANIFESTATIONS 03/29/2017 W 786.05 DONNIE RTNESS OF BREATH 03/29/2017 W 786.2 COUGH 03/29/2017 W J10.1 INFL UENZA DUE TO OTHER IDENTIFIED INFLUENZA VIRUS WITH OTHER RESPIRATORY MANIFESTATIONS 03/29/2017 W R05 COUGH 03/29/2017 W R06.02 DONNIE RTNESS OF BREATH 03/31/2017 W 488.12 INF LUENZA DUE TO IDENTIFIED 2009 H1N1 INFLUENZA VIRUS WITH OTHER RESPIRATORY MANIFESTATIONS 03/31/2017 W 786.05 DONNIE RTNESS OF BREATH 03/31/2017 W 786.2 COUGH 03/31/2017 W J10.1 INFL UENZA DUE TO OTHER IDENTIFIED INFLUENZA VIRUS WITH OTHER RESPIRATORY MANIFESTATIONS 03/31/2017 W R05 COUGH 03/31/2017 W R06.02 DONNIE RTNESS OF BREATH 04/13/2017 W 268 VITAMI N D DEFICIENCY 04/13/2017 W 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 04/13/2017 W 285.9 ANEM IA, UNSPECIFIED 04/13/2017 W 401.9 UNSP ECIFIED ESSENTIAL HYPERTENSION 04/13/2017 W 585.3 GARDENER KEVIN KIDNEY DISEASE, STAGE III (MODERATE) 04/13/2017 W D64.9 ANEM IA, UNSPECIFIED 04/13/2017 W E55.9 CHRISTINA MIN D DEFICIENCY, UNSPECIFIED 04/13/2017 W E78.5 HYPE RLIPIDEMIA, UNSPECIFIED 04/13/2017 W I10 ESSENT IAL (PRIMARY) HYPERTENSION 04/13/2017 W I12.9 HYPE RTENSIVE CHRONIC KIDNEY DISEASE WITH STAGE 1 THROUGH STAGE 4 CHRONIC KIDNEY DISEASE, OR UNSPECIFIED CHRONIC KIDNEY DISEASE 04/21/2017 Aleyda Houser W 274.10 GOUTY NEPHROPATHY, UNSPECIFIED 04/21/2017 Aleyda Houser W 403.00 HYPERTENSIVE CHRONIC KIDNEY DISEASE, MALIGNANT, WITH CHRONIC KIDNEY DISEASE STAGE I THROUGH STAGE IV, OR UNSPECIFIED 04/21/2017 Aleyda Houser W 719.47 PAIN IN JOINT INVOLVING ANKLE AND FOOT 04/21/2017 Aleyda Houser W I12.9 HYPERTENSIVE CHRONIC KIDNEY DISEASE WITH STAGE 1 THROUGH STAGE 4 CHRONIC KIDNEY DISEASE, OR UNSPECIFIED CHRONIC KIDNEY DISEASE 04/21/2017 Aleyda Houser W M10.371 GOUT DUE TO RENAL IMPAIRMENT, RIGHT ANKLE AND FOOT 04/21/2017 Aleyda Houser W M25.571 PAIN IN RIGHT ANKLE AND JOINTS OF RIGHT FOOT 04/21/2017 W 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, UNSPECIFIED 04/21/2017 W 403.00 HYP ERTENSIVE CHRONIC KIDNEY DISEASE, MALIGNANT, WITH CHRONIC KIDNEY DISEASE STAGE I THROUGH STAGE IV, OR UNSPECIFIED 04/21/2017 W 719.47 KATHY N IN JOINT INVOLVING ANKLE AND FOOT 04/21/2017 W I12.9 HYPE RTENSIVE CHRONIC KIDNEY DISEASE WITH STAGE 1 THROUGH STAGE 4 CHRONIC KIDNEY DISEASE, OR UNSPECIFIED CHRONIC KIDNEY DISEASE 04/21/2017 W M10.371 GO UT DUE TO RENAL IMPAIRMENT, RIGHT ANKLE AND FOOT 04/21/2017 W M25.571 PA IN IN RIGHT ANKLE AND JOINTS OF RIGHT FOOT 05/09/2017 W 401.9 UNSP ECIFIED ESSENTIAL HYPERTENSION 05/09/2017 W 404.01 HYP ERTENSIVE HEART AND CHRONIC KIDNEY DISEASE, MALIGNANT, WITH HEART FAILURE AND WITH CHRONIC KIDNEY DISEASE STAGE I THROUGH STAGE IV, OR UNSPECIFIED 05/09/2017 W 585.3 GARDENER KEVIN KIDNEY DISEASE, STAGE III (MODERATE) 05/09/2017 W 847.0 NECK SPRAIN 05/09/2017 W I10 ESSENT IAL (PRIMARY) HYPERTENSION 05/09/2017 W I13.0 HYPE RTENSIVE HEART AND CHRONIC KIDNEY DISEASE WITH HEART FAILURE AND STAGE 1 THROUGH STAGE 4 CHRONIC KIDNEY DISEASE, OR UNSPECIFIED CHRONIC KIDNEY DISEASE 05/09/2017 W N18.3 GARDENER KEVIN KIDNEY DISEASE, STAGE 3 (MODERATE) 05/09/2017 W S16.1 STRA IN OF MUSCLE, FASCIA AND TENDON AT NECK LEVEL 07/12/2017 W 268 VITAMI N D DEFICIENCY 07/12/2017 W 401.9 UNSP ECIFIED ESSENTIAL HYPERTENSION 07/12/2017 W 477.8 ABEL RGIC RHINITIS DUE TO OTHER ALLERGEN 07/12/2017 W 530.81 ESO PHAGEAL REFLUX 07/12/2017 W 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, STAGE IV (SEVERE) 07/12/2017 W E55.9 CHRISTINA MIN D DEFICIENCY, UNSPECIFIED 07/12/2017 W I10 ESSENT IAL (PRIMARY) HYPERTENSION 07/12/2017 W I12.9 HYPE RTENSIVE CHRONIC KIDNEY DISEASE WITH STAGE 1 THROUGH STAGE 4 CHRONIC KIDNEY DISEASE, OR UNSPECIFIED CHRONIC KIDNEY DISEASE 07/12/2017 W J30.2 OTHE R SEASONAL ALLERGIC RHINITIS 07/12/2017 W K21.9 MARIA EUGENIA RO-ESOPHAGEAL REFLUX DISEASE WITHOUT ESOPHAGITIS 07/12/2017 W V12.29 PER HAYES HISTORY OF OTHER ENDOCRINE, METABOLIC, AND IMMUNITY DISORDERS 07/12/2017 W Z87.39 PER HAYES HISTORY OF OTHER DISEASES OF THE MUSCULOSKELETAL SYSTEM AND CONNECTIVE TISSUE 07/14/2017 Corrina, Aleyda W 401.9 UNSPECIFIED ESSENTIAL HYPERTENSION 07/14/2017 Corrina, Aleyda W I10 ESSENTIAL (PRIMARY) HYPERTENSION 07/14/2017 Corrina, Aleyda W 268 07/14/2017 Corrina, Aleyda W 401.9 UNSPECIFIED ESSENTIAL HYPERTENSION 07/14/2017 Corrina, Aleyda W 477.8 ALLERGIC RHINITIS DUE TO OTHER ALLERGEN 07/14/2017 Corrina, Aleyda W 530.81 ESOPHAGEAL REFLUX 07/14/2017 Corrina, Aleyda W 585.4 CHRONIC KIDNEY DISEASE, STAGE IV (SEVERE) 07/14/2017 Corrina, Aleyda W E55.9 VITAMIN D DEFICIENCY, UNSPECIFIED 07/14/2017 Corrina, Aleyda W I10 ESSENTIAL (PRIMARY) HYPERTENSION 07/14/2017 Corrina, Aleyda W I12.9 HYPERTENSIVE CHRONIC KIDNEY DISEASE WITH STAGE 1 THROUGH STAGE 4 CHRONIC KIDNEY DISEASE, OR UNSPECIFIED CHRONIC KIDNEY DISEASE 07/14/2017 Corrina, Aleyda W J30.2 OTHER SEASONAL ALLERGIC RHINITIS 07/14/2017 Corrina, Aleyda W K21.9 GASTRO- ESOPHAGEAL REFLUX DISEASE WITHOUT ESOPHAGITIS 07/14/2017 Corrina, Aleyda W V12.29 07/14/2017 Corrina, Aleyda W Z87.39 PERSONAL HISTORY OF OTHER DISEASES OF THE MUSCULOSKELETAL SYSTEM AND CONNECTIVE TISSUE 07/14/2017 Corrina, Aleyda W 268 07/14/2017 Corrina, Aleyda W 401.9 UNSPECIFIED ESSENTIAL HYPERTENSION 07/14/2017 Corrina, Aleyda W 477.8 07/14/2017 Corrina, Aleyda W 530.81 ESOPHAGEAL REFLUX 07/14/2017 Corrina, Aleyda W 585.4 CHRONIC KIDNEY DISEASE, STAGE IV (SEVERE) 07/14/2017 Corrina, Aleyda W E55.9 VITAMIN D DEFICIENCY, UNSPECIFIED 07/14/2017 Corrina, Aleyda W I10 ESSENTIAL (PRIMARY) HYPERTENSION 07/14/2017 Corrina, Aleyda W I12.9 HYPERTENSIVE CHRONIC KIDNEY DISEASE WITH STAGE 1 THROUGH STAGE 4 CHRONIC KIDNEY DISEASE, OR UNSPECIFIED CHRONIC KIDNEY DISEASE 07/14/2017 Corrina, Aleyda W J30.2 OTHER SEASONAL ALLERGIC RHINITIS 07/14/2017 Corrina, Aleyda W K21.9 GASTRO- ESOPHAGEAL REFLUX DISEASE WITHOUT ESOPHAGITIS 07/14/2017 Corrina, Aleyda W V12.29 07/14/2017 Corrina, Aleyda W Z87.39 PERSONAL HISTORY OF OTHER DISEASES OF THE MUSCULOSKELETAL SYSTEM AND CONNECTIVE TISSUE 09/05/2017 KHALID, JOSE RAFAEL W 276.2 ACIDOSIS 09/05/2017 KHALID, JOSE RAFAEL W 401.0 MALIGNANT ESSENTIAL HYPERTENSION 09/05/2017 KHALID, JOSE RAFAEL W 585.4 CHRONIC KIDNEY DISEASE, STAGE IV (SEVERE) 09/05/2017 KHALID, JOSE RAFAEL W 790.6 OTHER ABNORMAL BLOOD CHEMISTRY 09/05/2017 KHALID, JOSE RAFAEL W E79.0 HYPERURICEMIA WITHOUT SIGNS OF INFLAMMATORY ARTHRITIS AND TOPHACEOUS DISEASE 09/05/2017 KHALID, JOSE RAFAEL W E87.2 ACIDOSIS 09/05/2017 KHALID, JOSE RAFAEL W I10 ESSENTIAL (PRIMARY) HYPERTENSION 09/05/2017 KHALID, JOSE RAFAEL W N18.4 CHRONIC KIDNEY DISEASE, STAGE 4 (SEVERE) 09/05/2017 W 276.2 ACIDOSIS 09/05/2017 W 401.0 NONI GNANT ESSENTIAL HYPERTENSION 09/05/2017 W 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, STAGE IV (SEVERE) 09/05/2017 W 790.6 OTHE R ABNORMAL BLOOD CHEMISTRY 09/05/2017 W E79.0 HYPE RURICEMIA WITHOUT SIGNS OF INFLAMMATORY ARTHRITIS AND TOPHACEOUS DISEASE 09/05/2017 W E87.2 ACIDOSIS 09/05/2017 W I10 ESSENT IAL (PRIMARY) HYPERTENSION 09/05/2017 W N18.4 GARDENER KEVIN KIDNEY DISEASE, STAGE 4 (SEVERE) 10/11/2017 W 268 VITAMI N D DEFICIENCY 10/11/2017 W 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 10/11/2017 W 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, UNSPECIFIED 10/11/2017 W 285.9 ANEM IA, UNSPECIFIED 10/11/2017 W 401.9 UNSP ECIFIED ESSENTIAL HYPERTENSION 10/11/2017 W 477.8 ABEL RGIC RHINITIS DUE TO OTHER ALLERGEN 10/11/2017 W 530.81 ESO PHAGEAL REFLUX 10/11/2017 W 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, STAGE IV (SEVERE) 10/11/2017 W D64.9 ANEM IA, UNSPECIFIED 10/11/2017 W E55.9 CHRISTINA MIN D DEFICIENCY, UNSPECIFIED 10/11/2017 W E78.5 HYPE RLIPIDEMIA, UNSPECIFIED 10/11/2017 W I10 ESSENT IAL (PRIMARY) HYPERTENSION 10/11/2017 W I12.9 HYPE RTENSIVE CHRONIC KIDNEY DISEASE WITH STAGE 1 THROUGH STAGE 4 CHRONIC KIDNEY DISEASE, OR UNSPECIFIED CHRONIC KIDNEY DISEASE 10/11/2017 W J30.2 OTHE R SEASONAL ALLERGIC RHINITIS 10/11/2017 W K21.9 MARIA EUGENIA RO-ESOPHAGEAL REFLUX DISEASE WITHOUT ESOPHAGITIS 10/11/2017 W M10.371 GO UT DUE TO RENAL IMPAIRMENT, RIGHT ANKLE AND FOOT 10/13/2017 Corrina, Aleyda W 268 VITAMIN D DEFICIENCY 10/13/2017 Corrina, Aleyda W 272.8 10/13/2017 Corrina, Aleyda W 274.10 10/13/2017 Corrina, Aleyda W 285.9 10/13/2017 Corrina, Aleyda W 401.9 UNSPECIFIED ESSENTIAL HYPERTENSION 10/13/2017 Corrina, Aleyda W 477.8 ALLERGIC RHINITIS DUE TO OTHER ALLERGEN 10/13/2017 Corrina, Aleyda W 530.81 ESOPHAGEAL REFLUX 10/13/2017 Corrina, Aleyda W 585.4 CHRONIC KIDNEY DISEASE, STAGE IV (SEVERE) 10/13/2017 Corrina, Aleyda W D64.9 ANEMIA, UNSPECIFIED 10/13/2017 Corrina, Aleyda W E55.9 VITAMIN D DEFICIENCY, UNSPECIFIED 10/13/2017 Corrina, Aleyda W E78.5 HYPERLIPIDEMIA, UNSPECIFIED 10/13/2017 Corrina, Aleyda W I10 ESSENTIAL (PRIMARY) HYPERTENSION 10/13/2017 Corrina, Aleyda W I12.9 HYPERTENSIVE CHRONIC KIDNEY DISEASE WITH STAGE 1 THROUGH STAGE 4 CHRONIC KIDNEY DISEASE, OR UNSPECIFIED CHRONIC KIDNEY DISEASE 10/13/2017 Corrina, Aleyda W J30.2 OTHER SEASONAL ALLERGIC RHINITIS 10/13/2017 Corrina, Aleyda W K21.9 GASTRO- ESOPHAGEAL REFLUX DISEASE WITHOUT ESOPHAGITIS 10/13/2017 Corrina, Aleyda W M10.371 GOUT DUE TO RENAL IMPAIRMENT, RIGHT ANKLE AND FOOT 01/12/2018 Corrina, Aleyda W 401.0 MALIGNANT ESSENTIAL HYPERTENSION 01/12/2018 Corrina, Aleyda W 681.10 CELLULITIS AND ABSCESS OF TOE, UNSPECIFIED 01/12/2018 Corrina, Aleyda W I10 ESSENTIAL (PRIMARY) HYPERTENSION 01/12/2018 Corrina, Aleyda W L03.032 CELLULITIS OF LEFT TOE 01/12/2018 Corrina, Aleyda W 268 VITAMIN D DEFICIENCY 01/12/2018 Corrina, Aleyda W 272.8 OTHER DISORDERS OF LIPOID METABOLISM 01/12/2018 Corrina, Aleyda W 274.10 01/12/2018 Corrina, Aleyda W 401.0 MALIGNANT ESSENTIAL HYPERTENSION 01/12/2018 Corrina, Aleyda W 403.00 HYPERTENSIVE CHRONIC KIDNEY DISEASE, MALIGNANT, WITH CHRONIC KIDNEY DISEASE STAGE I THROUGH STAGE IV, OR UNSPECIFIED 01/12/2018 Corrina, Aleyda W 477.0 01/12/2018 Corrina, Aleyda W 681.10 CELLULITIS AND ABSCESS OF TOE, UNSPECIFIED 01/12/2018 Corrina, Aleyda W E55.9 VITAMIN D DEFICIENCY, UNSPECIFIED 01/12/2018 Corrina, Aleyda W E78.5 HYPERLIPIDEMIA, UNSPECIFIED 01/12/2018 Corrina, Aleyda W I10 ESSENTIAL (PRIMARY) HYPERTENSION 01/12/2018 Corrina, Aleyda W I12.9 HYPERTENSIVE CHRONIC KIDNEY DISEASE WITH STAGE 1 THROUGH STAGE 4 CHRONIC KIDNEY DISEASE, OR UNSPECIFIED CHRONIC KIDNEY DISEASE 01/12/2018 Corrina, Aleyda W J30.1 ALLERGIC RHINITIS DUE TO POLLEN 01/12/2018 Corrina, Aleyda W L03.032 CELLULITIS OF LEFT TOE 01/12/2018 Corrina, Aleyda W M10.371 GOUT DUE TO RENAL IMPAIRMENT, RIGHT ANKLE AND FOOT 01/12/2018 Corrina, Aleyda W 268 01/12/2018 Corrina, Aleyda W 272.8 01/12/2018 Corrina, Aleyda W 274.10 01/12/2018 Corrina, Aleyda W 401.0 MALIGNANT ESSENTIAL HYPERTENSION 01/12/2018 Corrina, Aleyda W 403.00 HYPERTENSIVE CHRONIC KIDNEY DISEASE, MALIGNANT, WITH CHRONIC KIDNEY DISEASE STAGE I THROUGH STAGE IV, OR UNSPECIFIED 01/12/2018 Corrina, Aleyda W 477.0 01/12/2018 Corrina, Aleyda W 681.10 CELLULITIS AND ABSCESS OF TOE, UNSPECIFIED 01/12/2018 Corrina, Aleyda W E55.9 VITAMIN D DEFICIENCY, UNSPECIFIED 01/12/2018 Corrina, Aleyda W E78.5 HYPERLIPIDEMIA, UNSPECIFIED 01/12/2018 Corrina, Aleyda W I10 ESSENTIAL (PRIMARY) HYPERTENSION 01/12/2018 Corrina, Aleyda W I12.9 HYPERTENSIVE CHRONIC KIDNEY DISEASE WITH STAGE 1 THROUGH STAGE 4 CHRONIC KIDNEY DISEASE, OR UNSPECIFIED CHRONIC KIDNEY DISEASE 01/12/2018 Corrina, Aleyda W J30.1 ALLERGIC RHINITIS DUE TO POLLEN 01/12/2018 Corrina, Aleyda W L03.032 CELLULITIS OF LEFT TOE 01/12/2018 Corrina, Aleyda W M10.371 GOUT DUE TO RENAL IMPAIRMENT, RIGHT ANKLE AND FOOT 01/12/2018 W 268 VITAMI N D DEFICIENCY 01/12/2018 W 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 01/12/2018 W 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, UNSPECIFIED 01/12/2018 W 285.9 ANEM IA, UNSPECIFIED 01/12/2018 W 401.0 NONI GNANT ESSENTIAL HYPERTENSION 01/12/2018 W 403.00 HYP ERTENSIVE CHRONIC KIDNEY DISEASE, MALIGNANT, WITH CHRONIC KIDNEY DISEASE STAGE I THROUGH STAGE IV, OR UNSPECIFIED 01/12/2018 W 477.0 ABEL RGIC RHINITIS DUE TO POLLEN 01/12/2018 W 681.10 JULIO LULITIS AND ABSCESS OF TOE, UNSPECIFIED 01/12/2018 W D64.9 ANEM IA, UNSPECIFIED 01/12/2018 W E55.9 CHRISTINA MIN D DEFICIENCY, UNSPECIFIED 01/12/2018 W E78.5 HYPE RLIPIDEMIA, UNSPECIFIED 01/12/2018 W I10 ESSENT IAL (PRIMARY) HYPERTENSION 01/12/2018 W I12.9 HYPE RTENSIVE CHRONIC KIDNEY DISEASE WITH STAGE 1 THROUGH STAGE 4 CHRONIC KIDNEY DISEASE, OR UNSPECIFIED CHRONIC KIDNEY DISEASE 01/12/2018 W J30.1 ABEL RGIC RHINITIS DUE TO POLLEN 01/12/2018 W L03.032 CE LLULITIS OF LEFT TOE 01/12/2018 W M10.371 GO UT DUE TO RENAL IMPAIRMENT, RIGHT ANKLE AND FOOT 01/26/2018 W 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, STAGE IV (SEVERE) 01/26/2018 W 681.00 JULIO LULITIS AND ABSCESS OF FINGER, UNSPECIFIED 01/26/2018 W 709.9 UNSP ECIFIED DISORDER OF SKIN AND SUBCUTANEOUS TISSUE 01/26/2018 W 729.5 PAIN IN LIMB 01/26/2018 W 782.3 EDEMA 01/26/2018 W 989.5 TOXI C EFFECT OF VENOM 01/26/2018 W I12.9 HYPE RTENSIVE CHRONIC KIDNEY DISEASE WITH STAGE 1 THROUGH STAGE 4 CHRONIC KIDNEY DISEASE, OR UNSPECIFIED CHRONIC KIDNEY DISEASE 01/26/2018 W L03.012 CE LLULITIS OF LEFT FINGER 01/26/2018 W L98.9 DISO RDER OF THE SKIN AND SUBCUTANEOUS TISSUE, UNSPECIFIED 01/26/2018 W M79.642 PA IN IN LEFT HAND 01/26/2018 W R60.0 LOCA LIZED EDEMA 01/26/2018 W T14.8 OTHE R INJURY OF UNSPECIFIED BODY REGION 02/02/2018 W 727.41 EMI GLION OF JOINT 02/02/2018 W M67.472 GA NGLION, LEFT ANKLE AND FOOT 02/02/2018 W V72.83 OTH ER SPECIFIED PREOPERATIVE EXAMINATION 02/02/2018 W Z01.818 EN COUNTER FOR OTHER PREPROCEDURAL EXAMINATION 02/07/2018 Alf Ford W 211.3 BENIGN NEOPLASM OF COLON 02/07/2018 Alf Ford W 455.6 UNSPECIFIED HEMORRHOIDS WITHOUT MENTION OF COMPLICATIO N 02/07/2018 Alf Ford W 787.7 ABNORMAL FECES 02/07/2018 Alf Ford W D12.0 BENIGN NEOPLASM OF CECUM 02/07/2018 Alf Ford W D12.2 BENIGN NEOPLASM OF ASCENDING COLON 02/07/2018 Alf Ford W K64.8 OTHER HEMORRHOIDS 02/07/2018 Alf Ford W R19.5 OTHER FECAL ABNORMALITIES 05/02/2018 W 268 VITAMI N D DEFICIENCY 05/02/2018 W 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 05/02/2018 W 285.9 ANEM IA, UNSPECIFIED 05/02/2018 W 401.0 NONI GNANT ESSENTIAL HYPERTENSION 05/02/2018 W 477.8 ABEL RGIC RHINITIS DUE TO OTHER ALLERGEN 05/02/2018 W 530.81 ESO PHAGEAL REFLUX 05/02/2018 W 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, STAGE IV (SEVERE) 05/02/2018 W D64.9 ANEM IA, UNSPECIFIED 05/02/2018 W E55.9 CHRISTINA MIN D DEFICIENCY, UNSPECIFIED 05/02/2018 W E78.5 HYPE RLIPIDEMIA, UNSPECIFIED 05/02/2018 W I10 ESSENT IAL (PRIMARY) HYPERTENSION 05/02/2018 W I12.9 HYPE RTENSIVE CHRONIC KIDNEY DISEASE WITH STAGE 1 THROUGH STAGE 4 CHRONIC KIDNEY DISEASE, OR UNSPECIFIED CHRONIC KIDNEY DISEASE 05/02/2018 W J30.2 OTHE R SEASONAL ALLERGIC RHINITIS 05/02/2018 W K21.0 MARIA EUGENIA RO-ESOPHAGEAL REFLUX DISEASE WITH ESOPHAGITIS 05/02/2018 W V12.29 PER HAYES HISTORY OF OTHER ENDOCRINE, METABOLIC, AND IMMUNITY DISORDERS 05/02/2018 W Z87.39 PER HAYES HISTORY OF OTHER DISEASES OF THE MUSCULOSKELETAL SYSTEM AND CONNECTIVE TISSUE 05/15/2018 W 372.00 ACU TE CONJUNCTIVITIS, UNSPECIFIED 05/15/2018 W 379.99 OTH ER ILL-DEFINED DISORDERS OF EYE 05/15/2018 W H10.31 UNS PECIFIED ACUTE CONJUNCTIVITIS, RIGHT EYE 05/15/2018 W L29.8 OTHE R PRURITUS 07/27/2018 Aleyda Houser W 401.9 UNSPECIFIED ESSENTIAL HYPERTENSION 07/27/2018 Aleyda Houser W 403.00 HYPERTENSIVE CHRONIC KIDNEY DISEASE, MALIGNANT, WITH CHRONIC KIDNEY DISEASE STAGE I THROUGH STAGE IV, OR UNSPECIFIED 07/27/2018 Aleyda Houser W I10 ESSENTIAL (PRIMARY) HYPERTENSION 07/27/2018 Aleyda Houser W I12.9 HYPERTENSIVE CHRONIC KIDNEY DISEASE WITH STAGE 1 THROUGH STAGE 4 CHRONIC KIDNEY DISEASE, OR UNSPECIFIED CHRONIC KIDNEY DISEASE 07/27/2018 W 401.9 UNSP ECIFIED ESSENTIAL HYPERTENSION 07/27/2018 W 403.00 HYP ERTENSIVE CHRONIC KIDNEY DISEASE, MALIGNANT, WITH CHRONIC KIDNEY DISEASE STAGE I THROUGH STAGE IV, OR UNSPECIFIED 07/27/2018 W 780.79 OTH ER MALAISE AND FATIGUE 07/27/2018 W 784.0 HEAD ACHE 07/27/2018 W I10 ESSENT IAL (PRIMARY) HYPERTENSION 07/27/2018 W I12.9 HYPE RTENSIVE CHRONIC KIDNEY DISEASE WITH STAGE 1 THROUGH STAGE 4 CHRONIC KIDNEY DISEASE, OR UNSPECIFIED CHRONIC KIDNEY DISEASE 07/27/2018 W R51 HEADACHE 07/27/2018 W R53.1 WEAKNESS 07/31/2018 W 403.00 HYP ERTENSIVE CHRONIC KIDNEY DISEASE, MALIGNANT, WITH CHRONIC KIDNEY DISEASE STAGE I THROUGH STAGE IV, OR UNSPECIFIED 07/31/2018 W 427.81 SIN OATRIAL NODE DYSFUNCTION 07/31/2018 W I12.9 HYPE RTENSIVE CHRONIC KIDNEY DISEASE WITH STAGE 1 THROUGH STAGE 4 CHRONIC KIDNEY DISEASE, OR UNSPECIFIED CHRONIC KIDNEY DISEASE 07/31/2018 W R00.1 ALISON YCARDIA, UNSPECIFIED 08/01/2018 W 403.00 HYP ERTENSIVE CHRONIC KIDNEY DISEASE, MALIGNANT, WITH CHRONIC KIDNEY DISEASE STAGE I THROUGH STAGE IV, OR UNSPECIFIED 08/01/2018 W 585.3 GARDENER KEVIN KIDNEY DISEASE, STAGE III (MODERATE) 08/01/2018 W 719.46 KATHY N IN JOINT INVOLVING LOWER LEG 08/01/2018 W 781.2 ABNO RMALITY OF GAIT 08/01/2018 W I12.9 HYPE RTENSIVE CHRONIC KIDNEY DISEASE WITH STAGE 1 THROUGH STAGE 4 CHRONIC KIDNEY DISEASE, OR UNSPECIFIED CHRONIC KIDNEY DISEASE 08/01/2018 W M25.561 PA IN IN RIGHT KNEE 08/01/2018 W N18.3 GARDENER KEVIN KIDNEY DISEASE, STAGE 3 (MODERATE) 08/01/2018 W R26.81 UNS TEADINESS ON FEET 08/07/2018 W 403.00 HYP ERTENSIVE CHRONIC KIDNEY DISEASE, MALIGNANT, WITH CHRONIC KIDNEY DISEASE STAGE I THROUGH STAGE IV, OR UNSPECIFIED 08/07/2018 W 585.3 GARDENER KEVIN KIDNEY DISEASE, STAGE III (MODERATE) 08/07/2018 W 719.46 KATHY N IN JOINT INVOLVING LOWER LEG 08/07/2018 W 781.2 ABNO RMALITY OF GAIT 08/07/2018 W I12.9 HYPE RTENSIVE CHRONIC KIDNEY DISEASE WITH STAGE 1 THROUGH STAGE 4 CHRONIC KIDNEY DISEASE, OR UNSPECIFIED CHRONIC KIDNEY DISEASE 08/07/2018 W M25.561 PA IN IN RIGHT KNEE 08/07/2018 W N18.3 GARDENER KEVIN KIDNEY DISEASE, STAGE 3 (MODERATE) 08/07/2018 W R26.9 UNSP ECIFIED ABNORMALITIES OF GAIT AND MOBILITY 08/16/2018 W 715.16 OST EOARTHROSIS, LOCALIZED, PRIMARY, INVOLVING LOWER LEG 08/16/2018 W 719.46 KATHY N IN JOINT INVOLVING LOWER LEG 08/16/2018 W M17.11 UNI LATERAL PRIMARY OSTEOARTHRITIS, RIGHT KNEE 08/16/2018 W M25.561 PA IN IN RIGHT KNEE 10/10/2018 Corrina Aleyda W 715.15 OSTEOARTHROSIS, LOCALIZED, PRIMARY, INVOLVING PELVIC REGION AND THIGH 10/10/2018 Corrina Aleyda W 719.45 PAIN IN JOINT INVOLVING PELVIC REGION AND THIGH 10/10/2018 Corrina Aleyda W M16.11 UNILATERAL PRIMARY OSTEOARTHRITIS, RIGHT HIP 10/10/2018 Corrina, Aleyda W M25.551 PAIN IN RIGHT HIP 10/10/2018 Corrina, Aleyda W 403.00 HYPERTENSIVE CHRONIC KIDNEY DISEASE, MALIGNANT, WITH CHRONIC KIDNEY DISEASE STAGE I THROUGH STAGE IV, OR UNSPECIFIED 10/10/2018 Corrina, Aleyda W 585.4 CHRONIC KIDNEY DISEASE, STAGE IV (SEVERE) 10/10/2018 Corrina, Aleyda W 715.15 OSTEOARTHROSIS, LOCALIZED, PRIMARY, INVOLVING PELVIC REGION AND THIGH 10/10/2018 Corrina, Aleyda W 719.45 PAIN IN JOINT INVOLVING PELVIC REGION AND THIGH 10/10/2018 Corrina Aleyda W I12.9 HYPERTENSIVE CHRONIC KIDNEY DISEASE WITH STAGE 1 THROUGH STAGE 4 CHRONIC KIDNEY DISEASE, OR UNSPECIFIED CHRONIC KIDNEY DISEASE 10/10/2018 Corrina, Aleyda W M16.11 UNILATERAL PRIMARY OSTEOARTHRITIS, RIGHT HIP 10/10/2018 Corrina, Aleyda W M25.551 PAIN IN RIGHT HIP 10/10/2018 Corrina Aleyda W N18.4 CHRONIC KIDNEY DISEASE, STAGE 4 (SEVERE) 10/10/2018 Corrina, Aleyda W 403.00 HYPERTENSIVE CHRONIC KIDNEY DISEASE, MALIGNANT, WITH CHRONIC KIDNEY DISEASE STAGE I THROUGH STAGE IV, OR UNSPECIFIED 10/10/2018 Aleyda Houser W 585.4 CHRONIC KIDNEY DISEASE, STAGE IV (SEVERE) 10/10/2018 Aleyda Houser 715.15 OSTEOARTHROSIS, LOCALIZED, PRIMARY, INVOLVING PELVIC REGION AND THIGH 10/10/2018 Aleyda Houser W 719.45 PAIN IN JOINT INVOLVING PELVIC REGION AND THIGH 10/10/2018 Corrina Aleyda W I12.9 HYPERTENSIVE CHRONIC KIDNEY DISEASE WITH STAGE 1 THROUGH STAGE 4 CHRONIC KIDNEY DISEASE, OR UNSPECIFIED CHRONIC KIDNEY DISEASE 10/10/2018 Aleyda Houser M16.11 UNILATERAL PRIMARY OSTEOARTHRITIS, RIGHT HIP 10/10/2018 Aleyda Houser M25.551 PAIN IN RIGHT HIP 10/10/2018 Aleyda Houser N18.4 CHRONIC KIDNEY DISEASE, STAGE 4 (SEVERE) 10/19/2018 ROCIOAL[place]ANIA MARTINEZ 719.45 PAIN IN JOINT INVOLVING PELVIC REGION AND THIGH 10/19/2018 ROCIOAL[place]IA MARTINEZ M25.551 PAIN IN RIGHT HIP 10/19/2018 [place] CHAN 403.00 HYPERTENSIVE CHRONIC KIDNEY DISEASE, MALIGNANT, WITH CHRONIC KIDNEY DISEASE STAGE I THROUGH STAGE IV, OR UNSPECIFIED 10/19/2018 [place] CHAN 585.4 CHRONIC KIDNEY DISEASE, STAGE IV (SEVERE) 10/19/2018 [place] CHAN 715.15 OSTEOARTHROSIS, LOCALIZED, PRIMARY, INVOLVING PELVIC REGION AND THIGH 10/19/2018 [place] CHAN 719.45 PAIN IN JOINT INVOLVING PELVIC REGION AND THIGH 10/19/2018 [place] CHAN I12.9 HYPERTENSIVE CHRONIC KIDNEY DISEASE WITH STAGE 1 THROUGH STAGE 4 CHRONIC KIDNEY DISEASE, OR UNSPECIFIED CHRONIC KIDNEY DISEASE 10/19/2018 [place] CHAN M16.11 UNILATERAL PRIMARY OSTEOARTHRITIS, RIGHT HIP 10/19/2018 ROCIOAL[place]IA MARTINEZ M25.551 PAIN IN RIGHT HIP 10/19/2018 ROCIOAL[place]IA MARTINEZ N18.4 CHRONIC KIDNEY DISEASE, STAGE 4 (SEVERE) 10/19/2018 ROCIOALBANIA MARTINEZ 403.00 HYPERTENSIVE CHRONIC KIDNEY DISEASE, MALIGNANT, WITH CHRONIC KIDNEY DISEASE STAGE I THROUGH STAGE IV, OR UNSPECIFIED 10/19/2018 ROCIOALBANIA MARTINEZ 585.4 CHRONIC KIDNEY DISEASE, STAGE IV (SEVERE) 10/19/2018 ROCIOALBANIA MARTINEZ 715.15 OSTEOARTHROSIS, LOCALIZED, PRIMARY, INVOLVING PELVIC REGION AND THIGH 10/19/2018 [place] CHAN W 719.45 PAIN IN JOINT INVOLVING PELVIC REGION AND THIGH 10/19/2018 ROCIO, [place] W I12.9 HYPERTENSIVE CHRONIC KIDNEY DISEASE WITH STAGE 1 THROUGH STAGE 4 CHRONIC KIDNEY DISEASE, OR UNSPECIFIED CHRONIC KIDNEY DISEASE 10/19/2018 ROCIO, [place] W M16.11 UNILATERAL PRIMARY OSTEOARTHRITIS, RIGHT HIP 10/19/2018 ROCIO, [place] W M25.551 PAIN IN RIGHT HIP 10/19/2018 ROCIO, [place] W N18.4 CHRONIC KIDNEY DISEASE, STAGE 4 (SEVERE) 12/26/2018 KARINA GARCIA MD, Ot Z01.818 ENCOUNTER FOR OTHER PREPROCEDURAL EXAMIN 12/28/2018 DELIA SALINAS, KAMLA Bazan Ot D64.9 ANEMIA, UNSPECIFIED 12/28/2018 KAMLA LIN MD, Ot N81.6 RECTOCELE 12/28/2018 KAMLA LIN MD, Ot R32 UNSPECIFIED URINARY INCONTINENCE 12/28/2018 KAMLA LIN MD, Ot Z01.810 ENCOUNTER FOR PREPROCEDURAL CARDIOVASCUL 12/28/2018 KAMLA LIN MD, Ot Z01.812 ENCOUNTER FOR PREPROCEDURAL LABORATORY E 12/28/2018 KAMLA LIN MD Ot Z11.2 ENCOUNTER FOR SCREENING FOR OTHER BACTER 12/28/2018 KARINA GARCIA MD Ot E78.00 PURE HYPERCHOLESTEROLEMIA, UNSPECIFIED 12/28/2018 KARINA GARCIA MD Ot E78 .5 HYPERLIPIDEMIA, UNSPECIFIED 12/28/2018 KARINA GARCIA MD, Ot H25.12 AGE-RELATED NUCLEAR CATARACT, LEFT EYE 12/28/2018 KARINA GARCIA MD Ot I10 ESSENTIAL (PRIMARY) HYPERTENSION 12/28/2018 KARINA GARCIA MD Ot M19.90 UNSPECIFIED OSTEOARTHRITIS, UNSPECIFIED 12/28/2018 KARINA GARCIA MD, Ot Z79.899 OTHER CARE HOME (CURRENT) DRUG THERAPY 12/28/2018 KARINA GARCIA MD, Ot Z80 .9 FAMILY HISTORY OF MALIGNANT NEOPLASM, UN 12/28/2018 KARINA GARCIA MD, Ot Z88 .8 ALLERGY STATUS TO OTH DRUG/MEDS/BIOL SUB 12/28/2018 KARINA GARCIA MD Ot Z90.49 ACQUIRED ABSENCE OF OTHER SPECIFIED PART 12/28/2018 KARINA GARCIA MD Ot Z90.710 ACQUIRED ABSENCE OF BOTH CERVIX AND UTER 01/04/2019 KARINA GARCIA MD Ot E78.00 PURE HYPERCHOLESTEROLEMIA, UNSPECIFIED 01/04/2019 KARINA GARCIA MD Ot E78 .5 HYPERLIPIDEMIA, UNSPECIFIED 01/04/2019 KARINA GARCIA MD Ot H25.12 AGE-RELATED NUCLEAR CATARACT, LEFT EYE 01/04/2019 KARINA GARCIA MD Ot I10 ESSENTIAL (PRIMARY) HYPERTENSION 01/04/2019 KARINA GARCIA MD Ot M19.90 UNSPECIFIED OSTEOARTHRITIS, UNSPECIFIED 01/04/2019 KARINA GARCIA MD Ot Z79.899 OTHER CARE HOME (CURRENT) DRUG THERAPY 01/04/2019 KARINA GARCIA MD, Ot Z80 .9 FAMILY HISTORY OF MALIGNANT NEOPLASM, UN 01/04/2019 KARINA GARCIA MD Ot Z88 .8 ALLERGY STATUS TO OT DRUG/MEDS/BIOL SUB 01/04/2019 KARINA GARCIA MD, Ot Z90.49 ACQUIRED ABSENCE OF OTHER SPECIFIED PART 01/04/2019 KARINA GARCIA MD Ot Z90.710 ACQUIRED ABSENCE OF BOTH CERVIX AND UTER 01/21/2019 Robert Griggs W D55.2 ANEMIA DUE TO DISORDERS OF GLYCOLYTIC ENZYMES 01/21/2019 Robert Griggs D64.9 ANEMIA, UNSPECIFIED 01/21/2019 Robert Griggs W E55.9 VITAMIN D DEFICIENCY, UNSPECIFIED 01/21/2019 Robert Griggs W E78.5 HYPERLIPIDEMIA, UNSPECIFIED 01/21/2019 Robert Griggs W I10 ESSENTIAL (PRIMARY) HYPERTENSION 01/21/2019 Robert Griggs W I12.9 HYPERTENSIVE CHRONIC KIDNEY DISEASE W STG 1-4/UNSP CHR KDNY 01/21/2019 Robert Griggs W 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 01/21/2019 Robert Griggs J11.1 FLU DUE TO UNIDENTIFIED INFLUENZA VIRUS W OTH RESP MANIFEST 01/21/2019 Robert Griggs J30.2 OTHER SEASONAL ALLERGIC RHINITIS 01/21/2019 Brown, Robert W K21.0 GASTRO-ESOPHAGEAL REFLUX DISEASE WITH ESOPHAGITIS 01/21/2019 Robert Griggs W L03.032 CELLULITIS OF LEFT TOE 01/21/2019 Robert Griggs W M25.561 PAIN IN RIGHT KNEE 01/21/2019 Robert Griggs W N18.3 CHRONIC KIDNEY DISEASE, STAGE 3 (MODERATE) 01/21/2019 Robert Griggs W R06.02 SHORTNESS OF BREATH 01/21/2019 Robert Griggs W R26.9 UNSPECIFIED ABNORMALITIES OF GAIT AND MOBILITY 01/21/2019 Robert Griggs W R51 HEADACHE 01/21/2019 Robert Griggs W R53.1 WEAKNESS 01/25/2019 W D55.2 ANEM IA DUE TO DISORDERS OF GLYCOLYTIC ENZYMES 01/25/2019 W E55.9 CHRISTINA MIN D DEFICIENCY, UNSPECIFIED 01/25/2019 W I10 ESSENT IAL (PRIMARY) HYPERTENSION 01/25/2019 W I12.9 HYPE RTENSIVE CHRONIC KIDNEY DISEASE W STG 1-4/UNSP CHR KDNY 01/25/2019 W 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 01/25/2019 W J11.1 FLU DUE TO UNIDENTIFIED INFLUENZA VIRUS W OTH RESP MANIFEST 01/25/2019 W J30.2 OTHE R SEASONAL ALLERGIC RHINITIS 01/25/2019 W K21.0 MARIA EUGENIA RO-ESOPHAGEAL REFLUX DISEASE WITH ESOPHAGITIS 01/25/2019 W M25.561 PA IN IN RIGHT KNEE 01/25/2019 W N18.3 GARDENER KEVIN KIDNEY DISEASE, STAGE 3 (MODERATE) 01/25/2019 W R26.9 UNSP ECIFIED ABNORMALITIES OF GAIT AND MOBILITY 01/25/2019 W R51 HEADACHE 01/25/2019 W D55.2 ANEM IA DUE TO DISORDERS OF GLYCOLYTIC ENZYMES 01/25/2019 W D64.9 ANEM IA, UNSPECIFIED 01/25/2019 W E55.9 CHRISTINA MIN D DEFICIENCY, UNSPECIFIED 01/25/2019 W E78.5 HYPE RLIPIDEMIA, UNSPECIFIED 01/25/2019 W I10 ESSENT IAL (PRIMARY) HYPERTENSION 01/25/2019 W I12.9 HYPE RTENSIVE CHRONIC KIDNEY DISEASE W STG 1-4/UNSP CHR KDNY 01/25/2019 W 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 01/25/2019 W J11.1 FLU DUE TO UNIDENTIFIED INFLUENZA VIRUS W OTH RESP MANIFEST 01/25/2019 W J30.2 OTHE R SEASONAL ALLERGIC RHINITIS 01/25/2019 W K21.0 MARIA EUGENIA RO-ESOPHAGEAL REFLUX DISEASE WITH ESOPHAGITIS 01/25/2019 W L03.032 CE LLULITIS OF LEFT TOE 01/25/2019 W M25.561 PA IN IN RIGHT KNEE 01/25/2019 W N18.3 GARDENER KEVIN KIDNEY DISEASE, STAGE 3 (MODERATE) 01/25/2019 W R06.02 DONNIE RTNESS OF BREATH 01/25/2019 W R26.9 UNSP ECIFIED ABNORMALITIES OF GAIT AND MOBILITY 01/25/2019 W R51 HEADACHE 01/25/2019 W R53.1 WEAKNESS 01/25/2019 W D55.2 ANEM IA DUE TO DISORDERS OF GLYCOLYTIC ENZYMES 01/25/2019 W D64.9 ANEM IA, UNSPECIFIED 01/25/2019 W E55.9 CHRISTINA MIN D DEFICIENCY, UNSPECIFIED 01/25/2019 W E78.5 HYPE RLIPIDEMIA, UNSPECIFIED 01/25/2019 W I10 ESSENT IAL (PRIMARY) HYPERTENSION 01/25/2019 W I12.9 HYPE RTENSIVE CHRONIC KIDNEY DISEASE W STG 1-4/UNSP CHR KDNY 01/25/2019 W 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 01/25/2019 W J11.1 FLU DUE TO UNIDENTIFIED INFLUENZA VIRUS W OTH RESP MANIFEST 01/25/2019 W J30.2 OTHE R SEASONAL ALLERGIC RHINITIS 01/25/2019 W K21.0 MARIA EUGENIA RO-ESOPHAGEAL REFLUX DISEASE WITH ESOPHAGITIS 01/25/2019 W L03.032 CE LLULITIS OF LEFT TOE 01/25/2019 W M25.561 PA IN IN RIGHT KNEE 01/25/2019 W N18.3 GARDENER KEVIN KIDNEY DISEASE, STAGE 3 (MODERATE) 01/25/2019 W R06.02 DONNIE RTNESS OF BREATH 01/25/2019 W R26.9 UNSP ECIFIED ABNORMALITIES OF GAIT AND MOBILITY 01/25/2019 W R51 HEADACHE 01/25/2019 W R53.1 WEAKNESS 01/25/2019 W D55.2 ANEM IA DUE TO DISORDERS OF GLYCOLYTIC ENZYMES 01/25/2019 W D64.9 ANEM IA, UNSPECIFIED 01/25/2019 W E55.9 CHRISTINA MIN D DEFICIENCY, UNSPECIFIED 01/25/2019 W E78.5 HYPE RLIPIDEMIA, UNSPECIFIED 01/25/2019 W I10 ESSENT IAL (PRIMARY) HYPERTENSION 01/25/2019 W I12.9 HYPE RTENSIVE CHRONIC KIDNEY DISEASE W STG 1-4/UNSP CHR KDNY 01/25/2019 W 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 01/25/2019 W J11.1 FLU DUE TO UNIDENTIFIED INFLUENZA VIRUS W OTH RESP MANIFEST 01/25/2019 W J30.2 OTHE R SEASONAL ALLERGIC RHINITIS 01/25/2019 W K21.0 MARIA EUGENIA RO-ESOPHAGEAL REFLUX DISEASE WITH ESOPHAGITIS 01/25/2019 W L03.032 CE LLULITIS OF LEFT TOE 01/25/2019 W M25.561 PA IN IN RIGHT KNEE 01/25/2019 W N18.3 GARDENER KEVIN KIDNEY DISEASE, STAGE 3 (MODERATE) 01/25/2019 W R06.02 DONNIE RTNESS OF BREATH 01/25/2019 W R26.9 UNSP ECIFIED ABNORMALITIES OF GAIT AND MOBILITY 01/25/2019 W R51 HEADACHE 01/25/2019 W R53.1 WEAKNESS 01/25/2019 W D55.2 ANEM IA DUE TO DISORDERS OF GLYCOLYTIC ENZYMES 01/25/2019 W D64.9 ANEM IA, UNSPECIFIED 01/25/2019 W E55.9 CHRISTINA MIN D DEFICIENCY, UNSPECIFIED 01/25/2019 W E78.5 HYPE RLIPIDEMIA, UNSPECIFIED 01/25/2019 W I10 ESSENT IAL (PRIMARY) HYPERTENSION 01/25/2019 W I12.9 HYPE RTENSIVE CHRONIC KIDNEY DISEASE W STG 1-4/UNSP CHR KDNY 01/25/2019 W 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 01/25/2019 W J11.1 FLU DUE TO UNIDENTIFIED INFLUENZA VIRUS W OTH RESP MANIFEST 01/25/2019 W J30.2 OTHE R SEASONAL ALLERGIC RHINITIS 01/25/2019 W K21.0 MARIA EUGENIA RO-ESOPHAGEAL REFLUX DISEASE WITH ESOPHAGITIS 01/25/2019 W L03.032 CE LLULITIS OF LEFT TOE 01/25/2019 W M25.561 PA IN IN RIGHT KNEE 01/25/2019 W N18.3 GARDENER KEVIN KIDNEY DISEASE, STAGE 3 (MODERATE) 01/25/2019 W R06.02 DONNIE RTNESS OF BREATH 01/25/2019 W R26.9 UNSP ECIFIED ABNORMALITIES OF GAIT AND MOBILITY 01/25/2019 W R51 HEADACHE 01/25/2019 W R53.1 WEAKNESS 01/25/2019 W D55.2 ANEM IA DUE TO DISORDERS OF GLYCOLYTIC ENZYMES 01/25/2019 W D64.9 ANEM IA, UNSPECIFIED 01/25/2019 W E55.9 CHRISTINA MIN D DEFICIENCY, UNSPECIFIED 01/25/2019 W E78.5 HYPE RLIPIDEMIA, UNSPECIFIED 01/25/2019 W I10 ESSENT IAL (PRIMARY) HYPERTENSION 01/25/2019 W I12.9 HYPE RTENSIVE CHRONIC KIDNEY DISEASE W STG 1-4/UNSP CHR KDNY 01/25/2019 W 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 01/25/2019 W J11.1 FLU DUE TO UNIDENTIFIED INFLUENZA VIRUS W OTH RESP MANIFEST 01/25/2019 W J30.2 OTHE R SEASONAL ALLERGIC RHINITIS 01/25/2019 W K21.0 MARIA EUGENIA RO-ESOPHAGEAL REFLUX DISEASE WITH ESOPHAGITIS 01/25/2019 W L03.032 CE LLULITIS OF LEFT TOE 01/25/2019 W M25.561 PA IN IN RIGHT KNEE 01/25/2019 W N18.3 GARDENER KEVIN KIDNEY DISEASE, STAGE 3 (MODERATE) 01/25/2019 W R06.02 DONNIE RTNESS OF BREATH 01/25/2019 W R26.9 UNSP ECIFIED ABNORMALITIES OF GAIT AND MOBILITY 01/25/2019 W R51 HEADACHE 01/25/2019 W R53.1 WEAKNESS 01/25/2019 DELIA SALINAS, KAMLA Bazan Ot D64.9 ANEMIA, UNSPECIFIED 01/25/2019 KAMLA LIN MD Ot N81.6 RECTOCELE 01/25/2019 KAMLA LIN MD Ot R32 UNSPECIFIED URINARY INCONTINENCE 01/25/2019 DELIA SALINAS, KAMLA Bazan Ot Z01.810 ENCOUNTER FOR PREPROCEDURAL CARDIOVASCUL 01/25/2019 KAMLA LIN MD, Ot Z01.812 ENCOUNTER FOR PREPROCEDURAL LABORATORY E 01/25/2019 KAMLA LIN MD, Ot Z11.2 ENCOUNTER FOR SCREENING FOR OTHER BACTER 01/28/2019 W D55.2 ANEM IA DUE TO DISORDERS OF GLYCOLYTIC ENZYMES 01/28/2019 W D64.9 ANEM IA, UNSPECIFIED 01/28/2019 W E55.9 CHRISTINA MIN D DEFICIENCY, UNSPECIFIED 01/28/2019 W E78.5 HYPE RLIPIDEMIA, UNSPECIFIED 01/28/2019 W I10 ESSENT IAL (PRIMARY) HYPERTENSION 01/28/2019 W I12.9 HYPE RTENSIVE CHRONIC KIDNEY DISEASE W STG 1-4/UNSP CHR KDNY 01/28/2019 W 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 01/28/2019 W J11.1 FLU DUE TO UNIDENTIFIED INFLUENZA VIRUS W OTH RESP MANIFEST 01/28/2019 W J30.2 OTHE R SEASONAL ALLERGIC RHINITIS 01/28/2019 W K21.0 MARIA EUGENIA RO-ESOPHAGEAL REFLUX DISEASE WITH ESOPHAGITIS 01/28/2019 W L03.032 CE LLULITIS OF LEFT TOE 01/28/2019 W M25.561 PA IN IN RIGHT KNEE 01/28/2019 W N18.3 GARDENER KEVIN KIDNEY DISEASE, STAGE 3 (MODERATE) 01/28/2019 W R06.02 DONNIE RTNESS OF BREATH 01/28/2019 W R26.9 UNSP ECIFIED ABNORMALITIES OF GAIT AND MOBILITY 01/28/2019 W R51 HEADACHE 01/28/2019 W R53.1 WEAKNESS 01/30/2019 KARINA GARCIA MD Ot Z01.818 ENCOUNTER FOR OTHER PREPROCEDURAL EXAMIN 01/30/2019 KARINA GARCIA MD, Ot Z01.818 ENCOUNTER FOR OTHER PREPROCEDURAL EXAMIN 02/01/2019 KARINA GARCIA MD Ot E78.00 PURE HYPERCHOLESTEROLEMIA, UNSPECIFIED 02/01/2019 KARINA GARCIA MD Ot E78 .5 HYPERLIPIDEMIA, UNSPECIFIED 02/01/2019 KARINA GARCIA MD Ot H25.11 AGE-RELATED NUCLEAR CATARACT, RIGHT EYE 02/01/2019 KARINA GARCIA MD Ot I10 ESSENTIAL (PRIMARY) HYPERTENSION 02/01/2019 KARINA GARCIA MD Ot M19.90 UNSPECIFIED OSTEOARTHRITIS, UNSPECIFIED 02/01/2019 KARINA GARCIA MD Ot Z79.899 OTHER RECEPTION AGENT (CURRENT) DRUG THERAPY 02/01/2019 KARINA GARCIA MD Ot Z80 .9 FAMILY HISTORY OF MALIGNANT NEOPLASM, UN 02/01/2019 KARINA GARCIA MD Ot Z83.511 FAMILY HISTORY OF GLAUCOMA 02/01/2019 KARINA GARCIA MD Ot Z88 .8 ALLERGY STATUS TO OTH DRUG/MEDS/BIOL SUB 02/01/2019 KARINA GARCIA MD Ot Z90.710 ACQUIRED ABSENCE OF BOTH CERVIX AND UTER 02/05/2019 KARINA GARCIA MD Ot E78.00 PURE HYPERCHOLESTEROLEMIA, UNSPECIFIED 02/05/2019 KARINA GARCIA MD Ot E78 .5 HYPERLIPIDEMIA, UNSPECIFIED 02/05/2019 KARINA GARCIA MD Ot H25.11 AGE-RELATED NUCLEAR CATARACT, RIGHT EYE 02/05/2019 KARINA GARCIA MD Ot I10 ESSENTIAL (PRIMARY) HYPERTENSION 02/05/2019 KARINA GARCIA MD Ot M19.90 UNSPECIFIED OSTEOARTHRITIS, UNSPECIFIED 02/05/2019 KARIAN GARCIA MD Ot Z79.899 OTHER CARE HOME (CURRENT) DRUG THERAPY 02/05/2019 KARINA GARCIA MD Ot Z80 .9 FAMILY HISTORY OF MALIGNANT NEOPLASM, UN 02/05/2019 KARINA GARCIA MD Ot Z83.511 FAMILY HISTORY OF GLAUCOMA 02/05/2019 KARINA GARCIA MD Ot Z88 .8 ALLERGY STATUS TO OTH DRUG/MEDS/BIOL SUB 02/05/2019 KARINA GARCIA MD Ot Z90.710 ACQUIRED ABSENCE OF BOTH CERVIX AND UTER 02/06/2019 KARINA GARCIA MD Ot E78.00 PURE HYPERCHOLESTEROLEMIA, UNSPECIFIED 02/06/2019 KARINA GARCIA MD Ot E78 .5 HYPERLIPIDEMIA, UNSPECIFIED 02/06/2019 KARINA GARCIA MD Ot H25.11 AGE-RELATED NUCLEAR CATARACT, RIGHT EYE 02/06/2019 KARINA GARCIA MD Ot I10 ESSENTIAL (PRIMARY) HYPERTENSION 02/06/2019 KARINA GARCIA MD Ot M19.90 UNSPECIFIED OSTEOARTHRITIS, UNSPECIFIED 02/06/2019 KARINA GARCIA MD Ot Z79.899 OTHER RECEPTION AGENT (CURRENT) DRUG THERAPY 02/06/2019 KARINA GARCIA MD Ot Z80 .9 FAMILY HISTORY OF MALIGNANT NEOPLASM, UN 02/06/2019 KARINA GARCIA MD Ot Z83.511 FAMILY HISTORY OF GLAUCOMA 02/06/2019 KARINA GARCIA MD, Ot Z88 .8 ALLERGY STATUS TO OTH DRUG/MEDS/BIOL SUB 02/06/2019 KARINA GARCIA MD Ot Z90.710 ACQUIRED ABSENCE OF BOTH CERVIX AND UTER Procedures Code Description Performed By Per formed On [id number] RE PAIR PELVIC SUBCU/FASCIA, OPEN APPROAC 12/22/2014 [id number] DI LATION OF URETHRA, ENDO 12/22/2014 [id number] ERWIN PPLEMENT BLADDER NECK WITH SYNTH SUB, 12/22/2014 [id number] RE POSITION VAGINA, OPEN APPROACH 12/22/2014 Results Test Result Range Vitamin D, 25 OH - 02/08/16 09:00 Vitamin D, 25 OH 19.80 ng/mL 25.00-100.0 0 PTH, Intact - 02/08/16 09:00 PTH, INTACT 111 PG/ML 15-65 Renal Panel - 02/18/16 12:57 Albumin 4.5 g/dL 3.6-5.1 BUN 47 mg/dL 5-25 Calcium 9.7 mg/dL 8.3-10.4 Chloride 101 mmol/L 95-114 CO2 22 mEq/L 22-33 Creat 2.31 mg/dL 0.50-1.50 eGFR 20 mL/min/1.73m2 >59 Glucose 111 mg/dL 70-110 Phosphorus 4.0 mg/dL 2.5-4.8 Potassium 4.9 mmol/L 3.5-5.3 Sodium 134 mmol/L 134-148 Renal Panel - 03/09/16 09:00 Albumin 4.5 g/dL 3.6-5.1 BUN 33 mg/dL 5-25 Calcium 9.7 mg/dL 8.3-10.4 Chloride 107 mmol/L 95-114 CO2 22 mEq/L 22-33 Creat 2.07 mg/dL 0.50-1.50 eGFR 23 mL/min/1.73m2 >59 Glucose 96 mg/dL 70-110 Phosphorus 3.9 mg/dL 2.5-4.8 Potassium 4.6 mmol/L 3.5-5.3 Sodium 143 mmol/L 134-148 [facility] - 03/14/16 08:12 Anion Gap 16 6-14 BUN 35 mg/dL 5-25 Calcium 9.8 mg/dL 8.3-10.4 Chloride 105 mmol/L 95-114 CO2 25 mEq/L 22-33 Creat 2.02 mg/dL 0.50-1.50 eGFR 24 mL/min/1.73m2 >59 Glucose 90 mg/dL 70-110 Osmo 300 280-295 Potassium 4.4 mmol/L 3.5-5.3 Sodium 142 mmol/L 134-148 Lipid Panel - 04/28/16 09:30 C/HDL 2.6 3.7-6.7 Cholesterol 221 mg/dL 100-240 HDL 86 mg/dL 30-85 LDL-Calculated 118 mg/dL 0-100 Trig 85 mg/dL 35-160 VLDL 17 mg/dL 0-42 BNP - 07/07/16 09:30 BNP 68.40 pg/ml 0.00-100.00 BMP - 07/14/16 09:54 Anion Gap 16 6-14 BUN 28 mg/dL 5-25 Calcium 9.6 mg/dL 8.3-10.4 Chloride 101 mmol/L 95-114 CO2 24 mEq/L 22-33 Creat 1.89 mg/dL 0.50-1.50 eGFR 26 mL/min/1.73m2 >59 Glucose 93 mg/dL 70-110 Osmo 286 280-295 Potassium 4.7 mmol/L 3.5-5.3 Sodium 136 mmol/L 134-148 [facility] - 07/28/16 08:10 Anion Gap 16 6-14 BUN 50 mg/dL 5-25 Calcium 9.9 mg/dL 8.3-10.4 Chloride 102 mmol/L 95-114 CO2 25 mEq/L 22-33 Creat 2.24 mg/dL 0.50-1.50 eGFR 21 mL/min/1.73m2 >59 Glucose 86 mg/dL 70-110 Osmo 297 280-295 Potassium 5.2 mmol/L 3.5-5.3 Sodium 138 mmol/L 134-148 BMP - 08/16/16 08:50 Anion Gap 15 6-14 BUN 36 mg/dL 5-25 Calcium 9.9 mg/dL 8.3-10.4 Chloride 106 mmol/L 95-114 CO2 26 mEq/L 22-33 Creat 2.09 mg/dL 0.50-1.50 eGFR 23 mL/min/1.73m2 >59 Glucose 93 mg/dL 70-110 Osmo 301 280-295 Potassium 5.1 mmol/L 3.5-5.3 Sodium 142 mmol/L 134-148 Microalb/Creat - 09/05/16 08:30 Microalb 486.0 mg/L 0.0-20.0 UMicroalb/UCreat 406.56 mg/g 0.00-100.00 Urine Creatinine 119.5 mg/dl 0.0-50.0 Urine Culture - 09/05/16 08:30 PRELIM CULTURE RESULTS 10,000-20,000 Gram Po sitive Mixed Corrina FINAL CULTURE RESULTS 10,000-20,000 Gram Pos itive Mixed Corrina [id number] Skin Contaminant [id number] Further Workup done MEDIA PLATED Setup at 15:12 on 09/05/2016 CULTURE SOURCE urine Comprehensive Metabolic Panel - 11/22/16 09:56 Albumin 4.3 g/dL 3.6-5.1 ALP 86 U/L 35-130 ALT 12 U/L 6-45 Anion Gap 16 6-14 AST 14 U/L 2-40 BUN 31 mg/dL 5-25 Calcium 10.1 mg/dL 8.3-10.4 Chloride 104 mmol/L 95-114 CO2 27 mEq/L 22-33 Creat 1.95 mg/dL 0.50-1.50 eGFR 25 mL/min/1.73m2 >59 Globulin 2.8 g/dL 2.3-3.5 Glucose 95 mg/dL 70-110 Osmo 299 280-295 Potassium 4.5 mmol/L 3.5-5.3 Sodium 142 mmol/L 134-148 TBil 0.5 mg/dL 0.2-1.2 TP 7.1 g/dL 6.0-8.3 Lipid Panel - 11/22/16 09:56 C/HDL 3.3 3.7-6.7 Cholesterol 234 mg/dL 100-240 HDL 71 mg/dL 30-85 LDL-Calculated 129 mg/dL 0-100 Trig 168 mg/dL 35-160 VLDL 34 mg/dL 0-42 VIT B-12 - 01/12/17 09:30 Vitamin B12 487.00 pg/mL 213.00-816.00 Folate - 01/12/17 09:30 Folate 16.40 ng/mL 7.00-31.40 Vitamin D, 25 OH - 01/12/17 09:30 Vitamin D, 25 OH 32.20 ng/mL 25.00-100.0 0 PTH, Intact - 01/12/17 09:30 PTH, INTACT 56 PG/ML 1565 Uric Acid - 04/21/17 09:20 Uric Acid 6.3 mg/dL 2.6-7.2 Vitamin D, 25 OH - 05/17/17 12:28 Vitamin D, 25 OH 26.60 ng/mL 25.00-100.0 0 PTH, Intact - 05/17/17 12:28 PTH, INTACT 109 PG/ML 1565 Vitamin D, 25 OH - 07/14/17 08:50 Vitamin D, 25 OH 24.10 ng/mL 25.00-100.0 0 Magnesium - 09/05/17 09:10 Mg++ 2.5 mg/dL 1.6-2.6 Vitamin D, 25 OH - 10/13/17 08:30 Vitamin D, 25 OH 28.50 ng/mL 25.00-100.0 0 Iron - 01/12/18 09:00 Iron 86 ug/dL 70-200 IFOBT Occult Blood - 01/16/18 14:25 IFOBT Occult Blood POSITIVE Negative CBC with Auto Diff - 01/23/18 09:25 Baso% 0.60 % 0.00-2.50 Eos 0.1 K/uL 0.0-0.7 Eos% 1.5 % 0.0-7.0 Hct 31.8 % 36.0-46.0 Hgb 10.2 g/dL 13.0-15.0 Lym 1.80 K/uL 0.60-3.40 Lym% 38.0 % 10.0-50.0 MCH 30.3 pg 27.0-31.0 MCHC 32.1 g/dL 32.0-36.0 MCV 94.4 fL 80.0-97.0 Callahan% 7.2 % 0.0-12.0 MPV 9.8 fL 7.4-10.0 Mj% 52.7 % 37.0-80.0 Plt 322 K/uL 150-400 RBC 3.37 M/uL 3.60-5.00 RDW 12.3 % 11.6-14.8 WBC 4.74 K/uL 5.00-10.00 Mj 2.50 K/uL 2.00-6.90 [place]ahan 0.3 K/uL 0.0-0.9 Baso 0.0 K/uL 0.0-0.2 Protime - 01/31/18 13:37 INR 1.0 1.0-4.0 Protime 11.3 Sec 9.9-12.8 Surgical Pathology - 02/07/18 09:40 Surg Path Sent to [facility] Vitamin D, 25 OH - 04/05/18 08:50 Vitamin D, 25 OH 52.20 ng/mL 25.00-100.0 0 PTH, Intact - 04/05/18 08:50 PTH, INTACT 51 PG/ML 15-65 Ferritin - 06/25/18 08:42 Ferritin 185.89 ng/mL 4.63-204.00 Renal Panel - 07/10/18 13:41 Albumin 4.3 g/dL 3.6-5.1 BUN 39 mg/dL 5-25 Calcium 10.2 mg/dL 8.3-10.4 Chloride 104 mmol/L 95-114 CO2 21 mEq/L 22-33 Creat 2.54 mg/dL 0.50-1.50 eGFR 18 mL/min/1.73m2 >59 Glucose 91 mg/dL 70-110 Phosphorus 4.8 mg/dL 2.5-4.8 Potassium 4.6 mmol/L 3.5-5.3 Sodium 137 mmol/L 134-148 Creatinine Clearance - 07/10/18 13:46 Creat 2.54 mg/dL 0.50-1.50 Creatine Clearance 24 mL/min 80-110 Total Volume 3100 mL 0-4000 Renal Panel - 07/27/18 09:15 Albumin 4.3 g/dL 3.6-5.1 BUN 35 mg/dL 5-25 Calcium 10.2 mg/dL 8.3-10.4 Chloride 104 mmol/L 95-114 CO2 26 mEq/L 22-33 Creat 2.48 mg/dL 0.50-1.50 eGFR 19 mL/min/1.73m2 >59 Glucose 89 mg/dL 70-110 Phosphorus 4.2 mg/dL 2.5-4.8 Potassium 4.5 mmol/L 3.5-5.3 Sodium 139 mmol/L 134-148 Urine Protein/Creat - 08/28/18 13:26 MTP 120 mg/dL 0-20 Urine Creatinine 157.1 mg/dl 0.0-50.0 Urine Protein/Creat Ratio 0.76 mg/dL Renal Panel - 10/24/18 09:00 Albumin 4.2 g/dL 3.6-5.1 BUN 39 mg/dL 5-25 Calcium 9.5 mg/dL 8.3-10.4 Chloride 111 mmol/L 95-114 CO2 22 mEq/L 22-33 Creat 2.65 mg/dL 0.50-1.50 eGFR 17 mL/min/1.73m2 >59 Glucose 95 mg/dL 70-110 Phosphorus 4.2 mg/dL 2.5-4.8 Potassium 4.5 mmol/L 3.5-5.3 Sodium 144 mmol/L 134-148 VIT B-12 - 01/08/19 09:15 Vitamin B12 >2000.00 pg/mL 213.00-816.00 Vitamin D, 25 OH - 01/08/19 09:15 Vitamin D, 25 OH 24.80 ng/mL 25.00-100.0 0 Hepatitis Panel (4) - 01/16/19 13:11 HBsAg Screen Negative Negative Hep A Ab, IgM Negative Negative Hep B Core Ab, IgM Negative Negative Hep C Virus Ab <0.1 s/co ratio 0.0-0.9 Reticulocyte Count - 01/16/19 13:11 Reticulocyte Count 1.4 % 0.6-2.6 PTH, Intact - 01/16/19 13:11 PTH, Intact 65 pg/mL 15-65 VIT B-12 - 01/16/19 13:11 Vitamin B12 >2000.00 pg/mL 213.00-816.00 Vitamin D, 25 OH - 01/16/19 13:11 Vitamin D, 25 OH 25.10 ng/mL 25.00-100.0 0 Renal Panel - 02/06/19 08:45 Albumin 4.4 g/dL 3.6-5.1 BUN 51 mg/dL 5-25 Calcium 9.8 mg/dL 8.3-10.4 Chloride 105 mmol/L 95-114 CO2 21 mEq/L 22-33 Creat 3.00 mg/dL 0.50-1.50 eGFR 15 mL/min/1.73m2 >59 Glucose 93 mg/dL 70-110 Phosphorus 5.0 mg/dL 2.5-4.8 Potassium 4.4 mmol/L 3.5-5.3 Sodium 136 mmol/L 134-148 Urine Culture - 02/06/19 11:39 PRELIM CULTURE RESULTS >100,000 Gram Negativ e Lactose [employer] CATHERINE / ID to Follow MEDIA PLATED Setup at 14:02 on 02/06/2019 CULTURE SOURCE clean catch Sensi - 02/06/19 11:39 FINAL CULTURE RESULTS Escherichia coli (Isolate 1) Ampicillin/Sulbactam 16/8 Ampicillin >16 Amoxicillin/K Clavulanate >16/8 Ceftriaxone <=8 Ciprofloxacin <=1 Nitrofurantoin <=32 Gentamicin <=4 Levofloxacin <=2 Trimethoprim/ Sulfamethoxazole <=2/38 Tetracycline <=4 Amikacin <=16 Aztreonam <=8 Ceftazidime 4 Ceftazidime/K Clavulanate 2 Cephalothin >16 Cefotaxime <=2 Cefotaxime/K Clavulanate 4 Cefoxitin >16 Cefazolin >16 Cefepime <=8 Cefuroxime 16 Ertapenem <=1 Imipenem <=4 Meropenem <=4 Piperacillin/Tazobactam <=16 Piperacillin <=16 Tigecycline <=2 Tobramycin <=4 24Hr Ur-Creat - 02/07/19 14:27 24Hr Ur-Creat 754.65 mg/24hr 600.00-1600 .00 Total Volume 2250 mL 0-4000 Urinalysis - 02/14/19 09:00 Icotest N/A Negative Urine Volume Urine Volume Sufficient (10mL) Urine Yeast No Yeast present Urine-Appearance Clear Clear Urine-Bacteria Trace Urine-Bilirubin Negative Negative Urine-Blood Negative Negative Urine-Color Yellow Colorless-[place]t. [place] ow Urine-Epithelial Cells TNTC Urine-Glucose Negative Negative Urine-Ketones Negative Negative Urine-Leukocytes Negative Negative Urine-Nitrite Negative Negative Urine-Other Urine Saved if Culture Need ed (48hrs from time of collection) Urine-pH 5.0 5-8.5 Urine-Protein 2+ Negative Urine-RBC Negative Urine-Specific [place] <=1.005 1.000-1 .030 Urine-WBC 0-2/HPF Urobilinogen 0.2 E.U./dL 0.2-1.0 Encounters ACCT No. Visit Date/Time Discharge Status Pt. Type Provider Facility Loc./Unit Complaint [id number] 01/18/2019 11:10:00 Document Registration [id number] 02/01/2019 05:50:00 23:59:59 CLS Outpatient KARINA GARCIA MD Via [facility] CATARACT RIGHT EYE [id number] 01/30/2019 10:00:00 10:57:00 DIS Outpatient KARINA GARCIA MD Via [facility] PREOP CATARACT RIGHT [id number] 12/28/2018 05:52:00 07:55:00 DIS Outpatient KARINA GARCIA MD Via [facility] CATARACT LEFT EYE [id number] 12/26/2018 11:09:00 12:59:00 DIS Outpatient KARINA GARCIA MD Via [facility] PREOP CATARACT LEFT EYE [id number] 12/24/2014 08:57:00 16:35:00 DIS Inpatient KAMLA LIN MD Via [facility] WS RECTOCELE, INCO NTENENCE, VAGINAL PROLAPSE, CRYSTAL [id number] 12/19/2014 08:41:00 23:59:59 CLS Outpatient KAMLA LIN MD Via [facility] PREOP RECTOCELE, INCO NTENCE [id number] 11/04/2016 16:14:00 Document Registration [id number] 02/14/2019 10:53:00 02/14/2019 23:59 :00 DIS Outpatient Aleyda Houser [id number] 02/14/2019 08:53:00 02/14/2019 23:59 :00 DIS Outpatient Corrina, Aleyda [id number] 02/07/2019 14:26:00 02/07/2019 23:59 :00 DIS Outpatient KHALID, JOSE RAFAEL [id number] 02/07/2019 11:25:00 02/07/2019 23:59 :00 DIS Outpatient Corrina, Aleyda [id number] 02/06/2019 12:45:00 02/06/2019 23:59 :00 DIS Outpatient Corrina, Aleyda [id number] 02/06/2019 11:37:00 02/06/2019 23:59 :00 DIS Outpatient Corrina, Aleyda [id number] 01/21/2019 09:35:00 01/21/2019 10:25: 00 DIS Outpatient Brown Robert [id number] 01/08/2019 09:37:00 01/08/2019 23:59: 00 DIS Outpatient KHALID, JOSE RAFAEL [id number] 01/08/2019 08:34:00 01/08/2019 23:59: 00 DIS Outpatient KHALID, JOSE RAFAEL [id number] 10/24/2018 14:20:00 10/24/2018 23:59: 00 DIS Outpatient KHALID, JOSE RAFALE [id number] 10/24/2018 08:48:00 10/24/2018 23:59: 00 DIS Outpatient KHALID, JOSE RAFAEL [id number] 10/19/2018 08:15:00 10/19/2018 23:59: 00 DIS Outpatient ROCIOALBANIA [id number] 10/10/2018 08:47:00 10/10/2018 23:59: 00 DIS Outpatient Corrina, Aleyda [id number] 08/28/2018 13:24:00 08/28/2018 23:59: 00 DIS Outpatient KHALID, JOSE RAFAEL [id number] 07/27/2018 12:27:00 07/27/2018 23:59: 00 DIS Outpatient Corrina, Aleyda [id number] 07/10/2018 13:38:00 07/10/2018 23:59: 00 DIS Outpatient KHALID, JOSE RAFAEL [id number] 06/25/2018 13:08:00 06/25/2018 23:59: 00 DIS Outpatient KHALID, JOSE RAFAEL [id number] 04/05/2018 14:14:00 04/05/2018 23:59: 00 DIS Outpatient KHALID, JOSE RAFAEL [id number] 02/07/2018 07:36:00 02/07/2018 11:28: 00 DIS Outpatient lAf Ford [id number] 01/31/2018 13:19:00 01/31/2018 23:59: 00 DIS Outpatient Alf Ford [id number] 01/16/2018 14:25:00 01/16/2018 23:59: 00 DIS Outpatient Brokob, Kandi [id number] 01/12/2018 10:30:00 01/12/2018 23:59: 00 DIS Outpatient Corrina, Aleyda [id number] 10/13/2017 09:13:00 10/13/2017 23:59: 00 DIS Outpatient Corrina, Aleyda [id number] 09/05/2017 13:40:00 09/05/2017 23:59: 00 DIS Outpatient KHALID, JOSE RAFAEL [id number] 07/14/2017 09:08:00 07/14/2017 23:59: 00 DIS Outpatient Corrina, Aleyda [id number] 05/17/2017 12:08:00 05/17/2017 23:59: 00 DIS Outpatient KHALID, JOSE RAFAEL [id number] 04/21/2017 10:26:00 04/21/2017 23:59: 00 DIS Outpatient Corrina, Aleyda [id number] 03/27/2017 15:07:00 03/27/2017 23:59: 00 DIS Outpatient Brokob, Kandi [id number] 01/12/2017 11:48:00 01/12/2017 23:59: 00 DIS Outpatient KHALID, JOSE RAFAEL [id number] 11/22/2016 09:55:00 11/22/2016 23:59: 00 DIS Outpatient Corrina, Aleyda [id number] 09/05/2016 09:06:00 09/05/2016 23:59: 00 DIS Outpatient BrownRobert [id number] 08/16/2016 09:05:00 08/16/2016 23:59: 00 DIS Outpatient Corrina, Aleyda [id number] 07/28/2016 09:53:00 07/28/2016 23:59: 00 DIS Outpatient BrownRobert [id number] 07/14/2016 09:52:00 07/14/2016 23:59: 00 DIS Outpatient Corrina, Aleyda [id number] 07/07/2016 09:30:00 07/07/2016 23:59: 00 DIS Outpatient Corrina, Aleyda [id number] 04/28/2016 09:52:00 04/28/2016 23:59: 00 DIS Outpatient Aleyda Houser [id number] 03/14/2016 08:17:00 03/14/2016 23:59: 00 DIS Outpatient Aleyda Houser [id number] 03/09/2016 12:04:00 03/09/2016 23:59: 00 DIS Outpatient Robert Griggs [id number] 02/18/2016 12:53:00 02/18/2016 23:59: 00 DIS Outpatient CHHAYA MYERS [id number] 02/08/2016 15:05:00 02/08/2016 23:59: 00 DIS Outpatient CHHAYA MYERS [id number] 01/28/2019 09:24:00 Document Registration [id number] 01/17/2019 13:56:22 Document Registration [id number] 01/16/2019 12:59:35 Document Registration [id number] 12/04/2018 11:28:35 Document Registration [id number] 12/04/2018 11:23:05 Document Registration [id number] 10/19/2018 08:52:05 Document Registration [id number] 08/16/2018 14:36:00 Document Registration [id number] 08/07/2018 08:34:00 Document Registration [id number] 08/01/2018 08:58:00 Document Registration [id number] 07/31/2018 08:31:00 Document Registration [id number] 07/27/2018 08:19:00 Document Registration [id number] 05/15/2018 11:03:00 Document Registration [id number] 05/02/2018 08:46:00 Document Registration [id number] 02/07/2018 08:48:15 Document Registration [id number] 01/23/2018 10:37:28 Document Registration [id number] 01/12/2018 08:18:00 Document Registration [id number] 10/11/2017 08:20:00 Document Registration [id number] 09/05/2017 08:43:00 Document Registration [id number] 07/12/2017 08:19:00 Document Registration [id number] 05/09/2017 13:15:00 Document Registration [id number] 04/21/2017 08:26:00 Document Registration [id number] 04/13/2017 08:19:00 Document Registration [id number] 03/31/2017 09:48:00 Document Registration [id number] 03/29/2017 09:04:00 Document Registration [id number] 03/27/2017 13:42:00 Document Registration [id number] 01/12/2017 08:28:00 Document Registration [id number] 12/16/2016 08:30:00 Document Registration [id number] 11/22/2016 08:19:00 Document Registration [id number] 11/18/2016 08:17:00 Document Registration
== END 2019-02-01 07:37 | disposition home or self-care (01) ==
LOC: SDC 05:50
PROVIDERS: ATTEND Specialist
DX: H25.11 Age-related nuclear cataract, right eye (principal); I10 Essential (primary) hypertension; E78.5 Hyperlipidemia, unspecified; E78.00 Pure hypercholesterolemia, unspecified; M19.90 Unspecified osteoarthritis, unspecified site; Z79.899 Other long term (current) drug therapy; Z88.8 Allergy status to other drugs, medicaments and biological substances; Z90.710 Acquired absence of both cervix and uterus; Z83.511 Family history of glaucoma; Z80.9 Family history of malignant neoplasm, unspecified